=== PATIENT | female | born 1935 | race Caucasian/White ===

== ENCOUNTER 2020-02-06 12:33 | Outpatient (CLI) | payer MEDICARE, SELFPAY ==
--- NOTE | ~2020-02-06 | US_ITS ---
EXAMINATION:US venous doppler LE LT INDICATION:Left leg swelling TECHNIQUE: Multiple grayscale, color flow and Doppler images of the left lower extremity deep venous systems were obtained and reviewed. COMPARISON:No prior studies for comparison. FINDINGS: The common femoral, superficial femoral and popliteal veins demonstrate normal respiratory variation, augmentation and compressibility. Color flow is also seen within the posterior tibial, pe roneal, greater saphenous and profunda veins. IMPRESSION: 1: No lower extremity deep venous thrombosis. Reviewed, dictated and finalized at location A.
[2020-02-06 13:19] LABS: Basophils Absolute Auto 0.1 K/mm3 (0.0-0.1); Basophils Percent Auto 0.7 % (0.2-1.2); Eosinophils Absolute Auto 0.3 K/mm3 (0-0.3); Eosinophils Percent Auto 4.3 % (0-4.4); Hematocrit 35.3 % (37.0-47.0); Hemoglobin 11.5 g/dL (12.0-15.0); Immature Granulocyte Absolute 0.02 K/mm3 (0.00-0.031); Immature Granulocyte Percent A 0.3 % (0-0.5); Lymphocytes Percent Auto 19.2 % (18.3-44.2); Mean Corpuscular HGB Conc 32.6 g/dl (32-36); Mean Corpuscular Hemoglobin 31.5 pg (26-34); Mean Corpuscular Volume 96.7 fl (80-100); Mean Platelet Volume 10.7 fl (7.4-10.4); Monocytes Absolute Auto 0.8 K/mm3 (0.1-0.6); Monocytes Percent Auto 11.5 % (2.6-8.5); Neutrophils Absolute Auto 4.3 K/mm3 (1.3-6.7); Platelet Count Result 221 k/mm3 (150-375); Red Blood Count 3.65 M/mm3 (4.2-5.4); Red Cell Distribution Width 13.6 % (11.5-14.5); White Blood Count 6.8 K/mm3 (4.5-10.0)
== END 2020-02-06 12:34 | disposition home or self-care (01) ==
PROVIDERS: PCP Registered Nurse; Visit Provider Registered Nurse
DX: M79.89 Other specified soft tissue disorders (principal)
CPT/HCPCS: 36415; 85025; 93971

== ENCOUNTER 2020-02-22 13:59 | Emergency (ER) | payer MEDICARE, SELFPAY ==
--- NOTE | ~2020-02-22 | XR_ITS ---
XR hip LT 2V w AP pelvis DATE: 02/22/2020 14:48 INDICATION: Left hip pain following a fall 3 weeks ago. Left leg swelling down to the ankle. TECHNIQUE: AP pelvis. AP and lateral views of the left hip. COMPARISON: None FINDINGS: There is degenerative disease at L3-4 and particularly L4-5. The pubic symphysis and sacroiliac joints are normally aligned. No pelvic fracture or bone destructio n is evident. The hip joint spaces are symmetric and relatively well preserved; mild bilateral femora l head spurring consistent with mild bilateral hip osteoarthritis. No fracture, dislocation, avascula r necrosis or bone destruction of the left hip. IMPRESSION: Mild bilateral hip osteoarthritis No pelvic or left hip fracture Reviewed, dictated and finalized at location A.
--- NOTE | 2020-02-22 14:07 | ED.GENADULT ---
HPI - General Adult General Chief complaint: Extremity Injury, Lower Stated complaint: fall/leg pain Time Seen by Provider: 02/22/20 14:21 Source: patient Mode of arrival: ambulatory Limitations: no limitations History of Present Illness HPI narrative: 84-year-old female patient presents to the [facility] with complaints of left hip and left leg pain. Patient states that she tripped and fell and landed on some concrete at the end of January. Patient states that she went to see her primary doctor a couple of days later because she was having pain and swelling to the leg. Patient states that they did do a Doppler at that time and it was negative. Patient states that they did do x-rays but no x-rays are found in the chart today. Patient states the swelling and the pain to the leg continues and noticed that she is gotten big lump to the left hip. Patient states the swelling goes all the way down to her foot and ankle and that complains that her calf is very tender and very tight. Patient states that just not getting better. Denies being on any medications or blood thinners. Denies any chest pain or shortness of breath. Related Data Home Medications Medication Instructions Recorded Confirmed No Home Medications 02/22/20 02/22/20 Allergies Allergy/AdvReac Type Severity Reaction Status Date / Time No Known Allergies Allergy Unverified 01/29/20 12:10 Review of Systems Review of Systems: Narrative: CONSTITUTIONAL: Denies fever, chills, or sweats. EYES: Denies visual changes, redness, or discharge. ENT: Denies rhinorrhea, congestion, sore throat, or otalgia. CARDIOVASCULAR: Denies chest pain, palpitations, or edema. RESPIRATORY: Denies cough or dyspnea. GASTROINTESTINAL: Denies abdominal pain, nausea, vomiting, or diarrhea. GENITOURINARY: Denies dysuria or hematuria. SKIN: Denies rash or itching. Pap MUSCULOSKELETAL: Denies back pain, joint pain, or myalgia. Positive left hip and leg pain NEUROLOGIC: Denies headache, numbness, or weakness. PSYCHIATRIC: Denies anxiety or depression. [facility] Social History Social History Smoking status: Never smoker Alcohol intake: never Comments At the time of my signature I agree with nursing past medical history, surgical, social, and family history. There is no relevant family history pertinent to the presenting complaint. Exam Narrative: Exam Narrative: GENERAL: Well-appearing, well-nourished, and in no acute distress. HEAD: Normocephalic, atraumatic. EYES: PERRLA and EOMI. ENT: Nares clear, no rhinorrhea or epistaxis. Mucous membranes moist. NECK: Supple. No lymphadenopathy CHEST: Clear to auscultation. No respiratory distress. HEART: Regular rate and rhythm. No murmur heard. Normal peripheral pulses. ABDOMEN: Soft, nontender, nondistended, normal active bowel sounds. EXTREMITIES: Patient has large hematoma noted to the lateral side of the left hip. Patient does have good range of motion and able to walk with a steady gait on that leg. Patient does have significant swelling from the hip that goes all the way down to the ankle and foot and toes. Patient does have about 2-3+ pitting edema to the lower extremity and decreased pedal pulses on the left side. This could be due to the edema. There is some tightness noted to the skin on the left lower extremity and patient does have tenderness on palpation to the left calf. The left lower extremity is slightly warm to the touch as compared to the right extremity. SKIN: Warm, dry, no rash. NEURO: No focal deficits. Alert and oriented x3. Course Reevaluation(s) Reevaluation #1: Reevaluated patient after her hip x-ray has resulted. Discussed with her that the bones of the hip look fine and intact there is no evidence of any fractures. Discussed with her that I am still concerned the fact that she still has this very large hematoma to her left hip with extensive swelling to the left leg a
[2020-02-22 14:12] VITALS: BP 154/64; PULSE 51; RESP 16; TEMP 37.2; O2SAT 96
== END 2020-02-22 15:24 | disposition short-term general hospital (02) ==
PROVIDERS: Emergency Provider Nurse Practitioner Family; PCP Registered Nurse
DX: S70.02XA Contusion of left hip, initial encounter (principal); W19.XXXA Unspecified fall, initial encounter; I10 Essential (primary) hypertension
CPT/HCPCS: 73502; 99213; G0463

== ENCOUNTER 2020-02-22 15:51 | Emergency (ER) | payer MEDICARE, SELFPAY ==
--- NOTE | ~2020-02-22 | US_ITS ---
EXAMINATION: US venous doppler [facility] DATE: 02/22/2020 17:47 INDICATION: Left lower limb pain and swelling. TECHNIQUE: Grayscale ultrasound images without and with compression and Doppler ultrasound images of the left lower extremity veins were obtained. COMPARISON: Ultrasound 02/06/2020 FINDINGS: The visualized portions of left common femoral vein, profunda (deep) femoral vein, femoral vein, popl iteal vein, peroneal veins, posterior tibial veins, and greater saphenous vein outflow are patent. Th ere is a hematoma near the left hip measuring 9.2 x 6.2 x 6.1 cm. IMPRESSION: 1. No deep venous thrombosis. 2. Hematoma near the left hip. Reviewed, dictated and finalized at location A.
[2020-02-22 15:54] VITALS: BP 173/73; PULSE 60; RESP 20; TEMP 37.8; O2SAT 97
--- NOTE | 2020-02-22 17:40 | PC.NURSE ---
Pt states she fell 3 wks ago and still has L leg swelling and pain. Pt states she thinks the swelling should not be there and is concerned something is wrong. Pt to US
[2020-02-22 17:51] VITALS: O2SAT 99
[2020-02-22 17:52] VITALS: BP 177/85; O2SAT 98
[2020-02-22 17:53] LABS: Basophils Percent Auto 0.7 % (0.2-1.2); Eosinophils Absolute Auto 0.2 K/mm3 (0-0.3); Eosinophils Percent Auto 3.9 % (0-4.4); Hematocrit 37.7 % (37.0-47.0); Hemoglobin 12.3 g/dL (12.0-15.0); Immature Granulocyte Absolute 0.01 K/mm3 (0.00-0.031); Immature Granulocyte Percent A 0.2 % (0-0.5); Lymphocytes Absolute Auto 1.11 K/mm3 (0.9-3.2); Lymphocytes Percent Auto 19.6 % (18.3-44.2); Mean Corpuscular HGB Conc 32.6 g/dl (32-36); Mean Corpuscular Hemoglobin 32.3 pg (26-34); Mean Platelet Volume 11.6 fl (7.4-10.4); Monocytes Absolute Auto 0.7 K/mm3 (0.1-0.6); Monocytes Percent Auto 11.7 % (2.6-8.5); Neutrophils Absolute Auto 3.6 K/mm3 (1.3-6.7); Neutrophils Percent Auto 63.9 % (45.5-73.1); Platelet Count Result 148 k/mm3 (150-375); Red Blood Count 3.81 M/mm3 (4.2-5.4); Red Cell Distribution Width 14.6 % (11.5-14.5); White Blood Count 5.7 K/mm3 (4.5-10.0)
--- NOTE | 2020-02-22 18:05 | ED.LOWEXIN ---
HPI - Extremity Injury (Lower) General Chief Complaint: Extremity Injury, Lower Stated Complaint: fall, lt leg swelling & pain Time Seen by Provider: 02/22/20 17:26 Source: patient Mode of arrival: ambulatory Limitations: no limitations History of Present Illness HPI Narrative: This patient is a 84 year old female who presented for evaluation of left lower extremity swelling and redness. She states 3 weeks ago she fell onto her left hip. She developed left hip hematoma and leg swelling. She states this hematoma has decreased in size per patient. She reports swelling to entire leg but it has decreased. She came to get evaluated because her 's home health nurse told her she had cellulitis. She denies fever, chills, nausea, vomiting, weakness, chest pain or sob. Related Data Allergies Allergy/AdvReac Type Severity Reaction Status Date / Time No Known Allergies Allergy Unverified 01/29/20 12:10 Review of Systems Review of Systems: All systems reviewed & are unremarkable except as noted in HPI and below Constitutional: Constitutional: Denies chills, Denies fever(s) and Denies weakness Cardiovascular: Cardiovascular: Denies chest pain and Denies radiating jaw, neck or arm pain Respiratory: Respiratory: Denies cough, Denies dyspnea and Denies wheezing Gastrointestinal: Gastrointestinal: Denies nausea and Denies vomiting Musculoskeletal: Musculoskeletal: Denies back pain and Denies arthralgias Integumentary/Breasts: Skin/Breast: Denies skin ulcer Neurologic: Denies dizziness and Denies weakness PMFSH Past Medical History Medical History (Updated 02/22/20 @ 20:53 by Carmen Jacobs MD) Patient denies medical problems Social History Social History Smoking status: Never smoker Alcohol intake: never Exam Narrative: Exam Narrative: GENERAL: Well-appearing, well-nourished, and in no acute distress. HEAD: Normocephalic, atraumatic EYES: PERRLA and EOMI, conjunctiva clear without discharge Maria Teresa THROAT:Mucous membranes moist, Oropharynx normal without erythema, exudate, peritonsillar swelling or fluctuance NECK: Supple, without lymphadenopathy or mass RESPIRATORY: No respiratory distress, Airway patent, Respirations non-labored, Clear to auscultation without rales, rhonchi or wheeze HEART: Regular rate and rhythm. No murmur heard. Normal peripheral pulses. ABDOMEN: Soft, nontender, nondistended, normal active bowel sounds. No masses. No rebound or guarding, No organomegaly. EXTREMITIES: normal strength with full range of motion. left lower extremity with edema from foot to thigh, mild erythema clear cavitylower leg and tenderness. There is left hip area of swelling with no erythema, no tenderness, no ecchymosis. SKIN: Warm, dry, NEURO: Alert and oriented x3. CN 2-12 grossly intact. No focal deficits. PSYCH: Normal mood and affect. Charted negative RN RN RN Course Reevaluation(s) Reevaluation #1: Patient's labs are unremarkable . Her left lower leg is slightly red but this redness does not involve the hematoma. She only has mild tenderness to left lower leg. I discussed she will be prescribed antibiotics. Her redness may just be due to edema. Patient was also found to be bradycardic. 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 She states she has been told in the past she needs pacemaker but she states she is 84 year old and she is not getting a pacemaker. She states most people don't live that long. She does not want to be admitted or having anything done. Date: 02/22/20 Time: 19:17 Vital Signs Vital signs: Vital Signs Temperature 100.1 F H 02/22/20 15:54 Pulse Rate 60 02/22/20 15:54 Respiratory Rate 20 02/22/20 15:54 Blood Pressure 173/73 H 02/22/20 15:54 Pulse Oximetry 97 02/22/20 15:54 Temperature 100.1 F H 02/22/20 15:54 Pulse Rate 58 L 02/22/20 19:29 Respiratory Rate 20
[2020-02-22 18:06] LABS: INR 1.3; Prothrombin Time 15.4 Seconds (11.1-14.7)
[2020-02-22 18:07] LABS: Partial Thromboplastin Time 33.3 SECONDS (22.3-36.8)
[2020-02-22 18:10] LABS: Blood Urea Nitrogen 19 mg/dL (7-17); CRP 0.7 mg/dL (<1.0); Calcium 8.9 mg/dL (8.4-10.2); Carbon Dioxide 27 mmol/L (22-30); Chloride 103 mmol/L (98-107); Estimated CRCL calculation 35 ml/min; Estimated Glomerular Filt Rate 60; Glucose 110 mg/dL (65-105); Sodium 137 mmol/L (137-145)
[2020-02-22 19:12] LABS: Erythrocyte Sedimentation Rate 15 mm/hr (0-20)
[2020-02-22 19:29] VITALS: BP 190/90; PULSE 58; RESP 20; O2SAT 98
== END 2020-02-22 19:31 | disposition home or self-care (01) ==
PROVIDERS: Physician Assistant; Emergency Provider General Practice; PCP Registered Nurse
DX: L03.116 Cellulitis of left lower limb (principal); S70.02XA Contusion of left hip, initial encounter; R00.1 Bradycardia, unspecified; W19.XXXA Unspecified fall, initial encounter
CPT/HCPCS: 36415; 73502; 80048; 85025; 85610; 85652; 85730; 86140; 93971; 99284

== ENCOUNTER 2021-03-11 08:37 | Observation (INO) | payer MEDICARE, SELFPAY ==
[2021-03-11] VITALS (15 sets, daily range): BP systolic 133–182; BP diastolic 68–97; PULSE 46–76; RESP 14–23; TEMP 36.3–36.5; O2SAT 95–100
--- NOTE | ~2021-03-11 | XR_ITS ---
EXAMINATION: XR chest 2V DATE: 03/11/2021 09:04 INDICATION: Shortness of breath TECHNIQUE: PA and lateral views of the chest were obtained. COMPARISON: None FINDINGS: Cardiomegaly. Mild increased interstitial pattern in the lower lung zones with a few peripheral Kerle y B-lines consistent with mild pulmonary edema. Streaky opacities in the bilateral lower lung zones w hich could represent atelectasis or less likely pneumonia. No pleural effusion or pneumothorax. Tortu ous and atherosclerotic thoracic aorta. Moderate degenerative skeletal changes in the thoracic spine and bilateral shoulders. IMPRESSION: 1. Likely congestive heart failure with cardiomegaly and mild pulmonary edema in the lower lung zones . 2. Streaky bibasilar opacities and favor atelectasis over pneumonia. Reviewed, dictated and finalized at location A. IMPRESSION: 1. Likely congestive heart failure with cardiomegaly and mild pulmonary edema i n the lower lung zones. 2. Streaky bibasilar opacities and favor atelectasis over pneumonia.
--- NOTE | ~2021-03-11 | US_ITS ---
EXAMINATION: US venous doppler [facility] DATE: 03/12/2021 13:31 INDICATION: Lower limb swelling. TECHNIQUE: Grayscale ultrasound images without and with compression and Doppler ultrasound images of the bilateral lower extremity veins were obtained. COMPARISON: Ultrasound 02/22/2020 FINDINGS: The visualized portions of right common femoral vein, profunda (deep) femoral vein, femoral vein, pop liteal vein, peroneal veins, posterior tibial veins, and greater saphenous vein outflow are patent. T here is a large Richey's cyst. The visualized portions of left common femoral vein, profunda femoral vein, femoral vein, popliteal v ein, peroneal veins, posterior tibial veins, and greater saphenous vein outflow are patent. There is a moderate-sized Richey's cyst. IMPRESSION: 1. No deep venous thrombosis. 2. Bilateral Richey's cysts. Reviewed, dictated and finalized at location A.
--- NOTE | 2021-03-11 08:41 | PC.NURSE ---
Brionna Diaz ([id number]) [phone]
--- NOTE | 2021-03-11 08:48 | ECG_ITS ---
Measurements Intervals [place] Rate: 55 P: IA: 0 QRS: 8 QRSD: 110 T: 152 QT: 437 QTc: 420 Interpretive Statements ATRIAL FIBRILLATION WITH SLOW VENTRICULAR RESPONSE LEFT BUNDLE BRANCH BLOCK INFERIOR INFARCT, AGE INDETERMINATE ANTEROSEPTAL INFARCT OR DUE TO LBBB ABNORMAL ECG Electronically Signed On 03-11-2021 9:05:25 CDT by Marshall Felton D.O.
[2021-03-11 08:59] LABS: Basophils Percent Auto 0.7 % (0.2-1.2); Eosinophils Absolute Auto 0.2 K/mm3 (0-0.3); Eosinophils Percent Auto 4.3 % (0-4.4); Hematocrit 41.9 % (37.0-47.0); Hemoglobin 13.3 g/dL (12.0-15.0); Immature Granulocyte Absolute 0.01 K/mm3 (0.00-0.031); Immature Granulocyte Percent A 0.2 % (0-0.5); Immature Platelet Fraction Pct 9.1 % (0.9-11.2); Lymphocytes Absolute Auto 1.21 K/mm3 (0.9-3.2); Lymphocytes Percent Auto 22.4 % (18.3-44.2); Mean Corpuscular HGB Conc 31.7 g/dl (32-36); Mean Corpuscular Hemoglobin 30.3 pg (26-34); Mean Corpuscular Volume 95.4 fl (80-100); Mean Platelet Volume 11.9 fl (7.4-10.4); Monocytes Absolute Auto 0.7 K/mm3 (0.1-0.6); Monocytes Percent Auto 13.4 % (2.6-8.5); Neutrophils Absolute Auto 3.2 K/mm3 (1.3-6.7); Platelet Count Result 128 k/mm3 (150-375); Red Blood Count 4.39 M/mm3 (4.2-5.4); Red Cell Distribution Width 14.4 % (11.5-14.5); White Blood Count 5.4 K/mm3 (4.5-10.0)
[2021-03-11 09:11] LABS: Anion Gap 8 mmol/L (8-16); Blood Urea Nitrogen 20 mg/dL (7-17); Calcium 8.9 mg/dL (8.4-10.2); Carbon Dioxide 26 mmol/L (22-30); Chloride 105 mmol/L (98-107); Estimated CRCL calculation 38 ml/min; Estimated Glomerular Filt Rate > 60; Glucose 138 mg/dL (65-105); Potassium 3.9 mmol/L (3.4-5.0); Sodium 139 mmol/L (137-145)
--- NOTE | 2021-03-11 09:42 | ED.SOB ---
HPI - SOB/Dyspnea General Chief Complaint: Shortness of Breath/Dyspnea Stated Complaint: SOB Time Seen by Provider: 03/11/21 09:33 Source: patient Mode of arrival: wheelchair Limitations: no limitations History of Present Illness HPI Narrative: Patient is an 85-year-old female who presents from home with complaints of shortness of breath. Patient reports shortness of breath x1 month and increasing swelling to bilateral lower extremities. Patient reports that her PCP is a clinic . She denies taking daily meds. Patient reports she is scheduled for a pacemaker on 03/18. She denies chest pain or other complaints. She reports exertional dyspnea increasing over the past 2 weeks. Patient denies exposure to Covid and reports vaccination x2. Patient is unable to provide name of domestic helper at this time. Patient denies significant medical history except for the scheduled pacemaker placement. MD elicited complaint: shortness of breath Related Data Home Medications Medication Instructions Recorded Confirmed No Home Medications 03/11/21 03/11/21 Allergies Allergy/AdvReac Type Severity Reaction Status Date / Time No Known Allergies Allergy Unverified 01/29/20 12:10 Review of Systems Review of Systems: Narrative: CONSTITUTIONAL: Denies fever, chills, or sweats. EYES: Denies visual changes, redness, or discharge. ENT: Denies rhinorrhea, congestion, sore throat, or otalgia. CARDIOVASCULAR: Denies chest pain, palpitations, or edema. RESPIRATORY: Reports shortness of breath, denies cough GASTROINTESTINAL: Denies abdominal pain, nausea, vomiting, or diarrhea. GENITOURINARY: Denies dysuria or hematuria. SKIN: Denies rash or itching. MUSCULOSKELETAL: Denies back pain, joint pain, or myalgia. NEUROLOGIC: Denies headache, numbness, dizziness, or weakness. PSYCHIATRIC: Denies anxiety or depression. [facility] Past Medical History Medical History (Updated 02/23/20 @ 00:00 by Frank Reagan) Patient denies medical problems Social History Social History Smoking status: Never smoker Alcohol intake: never Course MEDICAL RECRUITER/PA Physician Supervision Dr. Chavez Vital Signs Vital signs: Vital Signs Pulse Rate 59 L 03/11/21 08:48 Respiratory Rate 14 03/11/21 08:48 Blood Pressure 174/80 H 03/11/21 08:48 Pulse Oximetry 96 03/11/21 08:48 Temperature 36.3 C L 03/11/21 08:53 Pulse Rate 55 L 03/11/21 13:03 Respiratory Rate 23 H 03/11/21 13:03 Blood Pressure 157/85 H 03/11/21 13:03 Pulse Oximetry 97 03/11/21 11:44 Reviewed-patient is informed that they may have pre-hypertension or hypertension based on a blood pressure reading. I recommend the patient call the primary care provider listed on their discharge instructions or a physician of their choice this week to arrange follow-up for further evaluation of possible pre-hypertension or hypertension. MDM - SOB/Dyspnea Lab Data Result diagrams: 03/11/21 08:52 03/11/21 08:52 Labs: Lab Results 03/11/21 03/11/21 03/11/21 Range/Units 08:52 08:52 08:52 WBC 5.4 (4.5-10.0) K/mm3 RBC 4.39 (4.2-5.4) M/mm3 Hgb 13.3 (12.0-15.0) g/dL Hct 41.9 (37.0-47.0) % MCV 95.4 (80-100) fl MCH 30.3 (26-34) pg MCHC 31.7 L (32-36) g/dl RDW 14.4 (11.5-14.5) % Plt Count 128 L (150-375) k/mm3 MPV 11.9 H (7.4-10.4) fl Immature Gran % (Auto) 0.2 (0-0.5) % Neut % (Auto) 59.0 (45.5-73.1) % Lymph % (Auto) 22.4 (18.3-44.2) % [place] % (Auto) 13.4 H (2.6-8.5) % Eos % (Auto) 4.3 (0-4.4) % Baso % (Auto) 0.7 (0.2-1.2) % Lymph # (Auto) 1.21 (0.9-3.2) K/mm3 [place] # (Auto) 0.7 H (0.1-0.6) K/mm3 Eos # (Auto) 0.2 (0-0.3) K/mm3 Baso # (Auto) 0.0 (0.0-0.1) K/mm3 Abs Immat Gran (auto) 0.01 (0.00-0.031) K/mm3 Absolute Neuts (auto) 3.2 (1.3-6.7) K/mm3 Absolute Nucleated RBC 0.0 (0.0-0.012) K/mm3 Nucleated RBC %
[2021-03-11 09:55] LABS: NT Pro B Type Natriuretic Pept 3330 pg/mL (5-100)
[2021-03-11] MEDS: FUROSEMIDE INJ 40 MG/4 ML VIAL IV PUSH ×2 (11:11→20:45)
--- NOTE | 2021-03-11 13:30 | ADMGEN ---
This patient, Becky Diaz, was admitted to [address] [place] [address] Room 330-01. Patient/family oriented to hospital policies and general routines including ID bracelet, bed and alarms, visiting hours, pain management, procedures, bathroom and other care routines, personal items, smoking policy, room service/diet, and visiting hours. Information on how to activate the Rapid Response Team has been discussed. Patient/Family are encouraged to report perceived risks to care and to ask questions if they do not understand what they are told or what they should do.
--- NOTE | 2021-03-11 14:25 | PM.IMHP ---
H&P: HPI History of Present Illness Date/Time: 03/11/21 14:25 Chief Complaint: Shortness of breath. Narrative: This is an 85-year-old female with paroxysmal atrial fibrillation and hypertension who presented to the emergency department earlier today via private vehicle from home for evaluation of shortness of breath. Over the past 1 month or so she has had progressive dyspnea as well as lower extremity edema. She was seen by her primary care provider, Kavya De La Paz NP and she was referred to a car rental sales assistant at [facility] where they discussed pacemaker insertion due to bradycardia. It sounds like she has an appointment for that on March 18. In any regard she has had increasing shortness of breath and orthopnea to the point where she is just not sleeping well thus she came in for evaluation today. She was indeed found to have evidence of congestive heart failure and slow AFib and she is being admitted in this setting. She was previously on medication for her atrial fibrillation and hypertension however stop taking them because they made her feel unwell. She has no complaints at the time my evaluation and specifically denies syncope, near syncope, chest pain, pleuritic pain, resting shortness of breath, nausea, vomiting, and sweats. Review of Systems Review of Systems: Narrative: 12 systems were reviewed with pertinent positives and negatives as per HPI. No recent cold or flu symptoms. She denies exposure to those positive for COVID-19. She has occasional palpitations and racing heart but not very often. No history of stroke or stroke symptoms. No history of venous thromboembolism. She has chronic knee pain, more so on the right knee, due to arthritis. Except as documented, all other systems were reviewed and are negative. [facility] Past Medical History Medical History (Updated 03/11/21 @ 22:01 by Olga Kaplan PA-C) Hypertension Paroxysmal atrial fibrillation (~07/2014) Surgical History Surgical History (Updated 03/11/21 @ 22:01 by Olga Kaplan PA-C) No history of previous surgery Family History Family History Mother Heart disease Father Prostate carcinoma Sibling Diabetes mellitus Sibling Cancer Social History Social History (Updated 03/11/21 @ 22:03 by Olga Kaplan PA-C) Social History: The patient grew up in [place] [facility] but has been in the [facility] for many years. She is and had 4 children, 1 son who is . Lifelong nonsmoker. She drinks perhaps 1 alcoholic beverage in evening if that. No illicit substance use. She designates her son Lionel as her surrogate decision maker. Code status: Full code. Meds Home Medications and Allergies Home Medications Medication Instructions Recorded Confirmed Type No Home Medications 03/11/21 03/11/21 History Allergies Allergy/AdvReac Type Severity Reaction Status Date / Time No Known Allergies Allergy Unverified 01/29/20 12:10 Vital Signs Vital Signs - 24 hr 03/11/21 08:48 03/11/21 08:53 03/11/21 08:57 Temperature 97.3 F L Pulse Rate 59 L 53 L 52 L Respiratory Rate 14 14 Blood Pressure 174/80 H 174/80 H Pulse Oximetry 96 98 03/11/21 09:22 03/11/21 09:23 03/11/21 09:25 Temperature Pulse Rate 50 L 51 L 46 L Respiratory Rate 18 19 17 Blood Pressure 138/88 146/74 H 135/85 Pulse Oximetry 96 95 95 03/11/21 09:26 03/11/21 11:44 03/11/21 13:03 Temperature Pulse Rate 54 L 51 L 55 L Respiratory Rate 20 19 23 H Blood Pressure 133/81 168/75 H 157/85 H Pulse Oximetry 96 97 03/11/21 13:05 Temperature Pulse Rate 55 L Respiratory Rate 18 Blood Pressure 150/97 H Pulse Oximetry 97 Exam Narrative: Exam Narrative: General: Well-developed elderly female sitting up in bed in no distress. Weight: 68.18 kg. BMI: 25.8. HEENT: Wearing glasses. PERRL, EOMI. Sclerae anicteric. Oral mucosa moist. Oropharynx clear. Neck: Supple. Respirato
[2021-03-11 15:30] LABS: Alanine Aminotransferase 17 U/L (4-35); Albumin Level 4.2 g/dL (3.5-5.1); Alkaline Phosphatase 138 U/L (38-126); Aspartate Amino Transferase 34 U/L (14-36); Bilirubin,Total 1.5 mg/dL (0.2-1.3); Magnesium 1.6 mg/dL (1.6-2.3)
[2021-03-11 15:34] LABS: Hemoglobin A1C 6.9 % (<5.7)
[2021-03-11 16:50] LABS: Free T4 Free Thyroxine Reflex 1.38 ng/dL (0.78-2.19)
[2021-03-11 17:25] LABS: Glucose Point of Care 154 mg/dl (65-105)
[2021-03-11 17:44] LABS: Total Triiodothyronine (T3) 1.17 NG/ML (0.97-1.69)
[2021-03-12] VITALS (9 sets, daily range): BP systolic 123–150; BP diastolic 57–65; PULSE 47–57; RESP 14–20; TEMP 36.1–36.4; O2SAT 93–100
--- NOTE | 2021-03-12 | ECHO_ITS ---
Patient Info Name: Becky Diaz Age: 85 years : 1935 Gender: Female Ht: 64 in Wt: 151 lbs BSA: 1.77 m2 HR: 51 bpm BP: 147 / 65 mmHg Heart Rhythm: Atrial Fibrillation Technical Quality: Good Exam Date: 03/12/2021 1:40 PM Exam Location: [facility] Pulmonary Patient Status: Outpatient Admit Date: 03/11/2021 Staff Ordering Physician: Mona Hendricks Orthopedic Assistant: Edgar Dorantes RDCS, RT Attending Provider: Nyla Hernandez PA-C Referring Physician: Ruthie SIBLEY; Exam Type: CA echo doppler color flow Study Info Indications I50.9 - Heart failure, unspecified Complete two-dimensional, color flow and Doppler transthoracic echocardiogram is performed. Strain analysis performed. Summary 1. Complete two-dimensional, color flow and Doppler transthoracic echocardiogram is performed. 2. Left ventricular chamber dimension is mildly enlarged. 3. Left ventricular systolic function is moderately reduced, estimated at 35-40%. 4. Right ventricular chamber dimension is mildly enlarged. 5. Severe biatrial dilation. 6. Mild aortic and mitral regurgitation. 7. Moderate tricuspid regurgitation. 8. Atrial Fib. Left Ventricle Left ventricular chamber dimension is mildly enlarged. Left ventricular systolic function is moderately reduced, estimated at 35-40%. The left ventricular diastolic function is indeterminate. Right Ventricle Right ventricular chamber dimension is mildly enlarged. Left Atria Left atrial chamber dimension is severely enlarged. Right Atria Right atrial chamber dimension is severely enlarged. Aortic Valve The aortic valve is normal. There is mild aortic valve regurgitation. Pulmonic Valve The pulmonic valve is normal. Mitral Valve The mitral valve has normal leaflets. There is mild mitral valve regurgitation. Tricuspid Valve The tricuspid valve leaflets are normal. There is moderate tricuspid valve regurgitation. Pericardium/Pleural The pericardium appears normal. Aorta The aortic root size at the sinus of Valsalva is normal. Left Ventricular Outflow Tract Name Value Normal LVOT 2D LVOT Diameter 2.0 cm LVOT Doppler LVOT Peak Gradient 5 mmHg LVOT Mean Gradient 2 mmHg LVOT VTI 21 cm LVOT VTI/AV VTI Ratio 0.6 LVOT Stroke Volume 67 ml LVOT CO 3.9 l/min LVOT CI 2.2 l/min/m2 Mitral Valve Name Value Normal MV Doppler MV Decel Giles 363 cm/s2 MV PHT 78 ms MV Area (PHT) 2.8 cm2 4.0-5.0 MV Diastolic Function MV E Peak Veloc
[2021-03-12 06:18] LABS: Potassium 3.3 mmol/L (3.4-5.0)
[2021-03-12 06:28] LABS: Anion Gap 6 mmol/L (8-16); Blood Urea Nitrogen 21 mg/dL (7-17); Calcium 8.4 mg/dL (8.4-10.2); Carbon Dioxide 30 mmol/L (22-30); Chloride 102 mmol/L (98-107); Estimated CRCL calculation 43 ml/min; Estimated Glomerular Filt Rate > 60; Glucose 109 mg/dL (65-105); Magnesium 1.5 mg/dL (1.6-2.3); Sodium 138 mmol/L (137-145)
[2021-03-12 08:10] LABS: Glucose Point of Care 124 mg/dl (65-105)
[2021-03-12] MEDS: FUROSEMIDE INJ 40 MG/4 ML VIAL 20 MG IV PUSH ×2 (08:29→20:20)
[2021-03-12] MEDS: ENOXAPARIN 40 MG/0.4 ML SYRINGE SUB-Q (08:29)
[2021-03-12] MEDS: MAGNESIUM SULF 2 GM/WATER 50ML 2 GM/50 ML BAG IVPB (08:40)
[2021-03-12] MEDS: POTASSIUM CHLORIDE 20 MEQ TABLET 40 MEQ PO (08:40)
--- NOTE | 2021-03-12 09:35 | PM.CNCAR ---
Assessment and Plan Assessment and plan (1) Atrial fibrillation with slow ventricular response: Code(s): I48.91 - Unspecified atrial fibrillation Status: Acute Assessment and Plan: History of atrial fibrillation by report diagnosed in 2013. She is in atrial fibrillation but rate controlled on no AV ashley blocking agents suggesting some degree of AV node dysfunction. She is also not systemically anticoagulated and says that she has never taken any blood thinners for her atrial fibrillation. However, records from our office indicate that she was seen by Dr. Blaze javier initially after being diagnosed with atrial fibrillation is placed on Xarelto at that time. At that time she admitted to only taking her Xarelto once every 3 days. The risk of stroke was discussed with her at that time. She has a CHADS Vasc score of 5 (CHF, hypertension, age, female gender) - anticoagulation is indicated. Will restart Xarelto. (2) Hypertension: Code(s): I10 - Essential (primary) hypertension Status: Acute Assessment and Plan: Above goal. will add an antihypertensive agent to her regimen with initiation of medical therapy for her heart failure. (3) Congestive heart failure: Qualifiers: Heart failure chronicity: acute Heart failure type: unspecified Qualified Code(s): I50.9 - Heart failure, unspecified Code(s): I50.9 - Heart failure, unspecified Status: Acute Assessment and Plan: Per the patient she has no knowledge of a prior diagnosis of congestive heart failure. However, echocardiogram from 2017 shows that she has grade 3-4 diastolic dysfunction with an ejection fraction of 45-50%. Severe biatrial enlargement. mild mitral valve regurgitation, mild aortic regurgitation, trivial pulmonic regurgitation. Will repeat an echo. I would like to start her on medical management for her heart failure however, patient states that she does not want to take any medicines. Will wait until repeat echo results are available and discuss strategy for medical management of her systolic and diastolic heart failure. Further recommendations to follow. (4) Left bundle branch block: Code(s): I44.7 - Left bundle-branch block, unspecified Status: Acute Assessment and Plan: Left bundle-branch block seen on EKG. No prior EKG to compare this to. She does tell me that her clerk specialist mentioned some type of procedure to look at her heart which I imagine was probably a left heart catheterization. However, this was not performed. Will obtain an echocardiogram to assess for reduced systolic function - if reduced will discuss with patient possible ischemic evaluation (5) Heart murmur on physical examination: Code(s): R01.1 - Cardiac murmur, unspecified Status: Acute Assessment and Plan: She has a soft ejection murmur heard at the right and left upper sternal borders. She states she has never been told that she has a heart murmur in the past. Will obtain an echocardiogram to assess for any valve pathology. History of Present Illness History of Present Illness Consult date/time: 03/12/21 09:35 Requesting physician: Sandra Patino FNP Consult reason: congestive heart failure Reason For Visit: new onset chf Narrative: Date of service 03/12/2021: Cardiology consultation for congestive heart failure This is an 85-year-old female who I am seeing at the request of Radha Patino NP for our opinion regarding her heart failure. This is a patient with a past medical history of hypertension and atrial fibrillation who presented to the emergency department yesterday with complaint of shortness of breath. She says that gradually over several months she has noticed that she is unable to carry out her usual activities without becoming short of breath. She does say that she is still able to do everything that she is to however she does notice that after she walks a long distance es
--- NOTE | 2021-03-12 12:26 | PM.IMPN ---
Progress Note: A&P Assessment and Plan (1) Congestive heart failure: Qualifiers: Heart failure chronicity: acute on chronic Heart failure type: combined systolic and diastolic Qualified Code(s): I50.43 - Acute on chronic combined systolic (congestive) and diastolic (congestive) heart failure Code(s): I50.9 - Heart failure, unspecified Status: Acute Assessment and Plan: Patient with known systolic and diastolic heart failure presents with worsening shortness of breath and CAYLA lower extremity swelling over the last 1 month. She stopped taking her medications at some point. She reiterates her hesitancy to take any medications since she says her last year due to side effects from too many medications , per patient. Continue diuresis with IV lasix and monitor I&Os, daily weights. Low sodium diet. Leg swelling is likely due to decompensated heart failure however given her risk for VTE, will order venous doppler of the legs. Appreciate cardiology input. Echocardiogram pending. (2) Atrial fibrillation with slow ventricular response: Code(s): I48.91 - Unspecified atrial fibrillation Status: Chronic Assessment and Plan: History of A fib dating back to 2013. HRs mostly in 40s and 50s today but as low as 37bpm with which she is asymptomatic. Patient reports an upcoming appointment for pacemaker insertion 03/18/21 at [facility] I believe with Dr White. LISSETTE Dunn and I have both educated the patient on her increased risk for VTE and stroke and the recommendation for Xarelto. Xarelto added. (3) Left bundle branch block: Code(s): I44.7 - Left bundle-branch block, unspecified Status: Acute Assessment and Plan: Awaiting echocardiogram. (4) Hypertension: Qualifiers: Hypertension type: unspecified Qualified Code(s): I10 - Essential (primary) hypertension Code(s): I10 - Essential (primary) hypertension Status: Chronic Assessment and Plan: BPs elevated yesterday and have improved a little with lasix. She was previously on losartan which she says she stopped taking since it made her feel unwell. Further cardiac recommendations to follow after echocardiogram. Monitor BP and adjust treatment as needed. Subjective Date/time seen: 03/12/21 1210 Interval history: Ms. Diaz is a 85yo F admitted for acute on chronic CHF. She reports she is feeling a bit better and her shortness of breath is improved today. She denies chest pain. Tolerating oral intake without abdominal pain, nausea or vomiting. Review of Systems Review of Systems: All systems reviewed & are unremarkable except as noted in HPI and below Exam Narrative: Exam Narrative: General: Well-developed, spry elderly female resting comfortably sitting up in bedside chair in no acute distress. HEENT: Wearing glasses. EOMI. Sclerae anicteric. Oral mucosa moist. Neck: Supple. Respiratory: Lungs are clear to auscultation bilaterally. Respirations even and nonlabored. Tolerating room air. Cardiovascular: Rate is bradycardic, rhythm is irregular. Systolic murmur heard over left sternal border. Telemetry review shows atrial fibrillation with bradycardia. Gastrointestinal: Abdomen is soft, nontender, and nondistended with positive bowel sounds. Extremities: No cyanosis or clubbing. Trace pretibial and pedal edema bilaterally, right greater than left. Negative Javier sign. Neurological: Awake and alert; answering questions appropriately. No focal neurologic deficits noted. Speech is clear. Psychiatric: Pleasant and cooperative with normal mood and affect. Objective Data Vital Signs Vital Signs: Last Vital Signs Temp 97.6 F 03/12/21 06:00 Pulse 54 L 03/12/21 12:00 Resp 14 03/12/21 06:00
[2021-03-12 13:07] LABS: Magnesium 2.1 mg/dL (1.6-2.3); Potassium 3.9 mmol/L (3.4-5.0)
[2021-03-12] MEDS: RIVAROXABAN 20 MG TABLET PO (17:16)
[2021-03-13] VITALS: PULSE 44
[2021-03-13 04:00] VITALS: PULSE 54
[2021-03-13 06:00] VITALS: BP 147/79; PULSE 57; RESP 16; TEMP 36.2; O2SAT 94
[2021-03-13 06:31] LABS: Anion Gap 6 mmol/L (8-16); Blood Urea Nitrogen 20 mg/dL (7-17); Calcium 8.5 mg/dL (8.4-10.2); Carbon Dioxide 30 mmol/L (22-30); Chloride 102 mmol/L (98-107); Estimated CRCL calculation 38 ml/min; Estimated Glomerular Filt Rate > 60; Glucose 100 mg/dL (65-105); Magnesium 1.9 mg/dL (1.6-2.3); Potassium 3.6 mmol/L (3.4-5.0); Sodium 138 mmol/L (137-145)
[2021-03-13 08:00] VITALS: PULSE 57
[2021-03-13] MEDS: FUROSEMIDE INJ 40 MG/4 ML VIAL 20 MG IV PUSH (08:27)
[2021-03-13] MEDS: SACUBITRIL/VALSARTAN 24-26 MG TABLET 1 TAB PO (08:32)
--- NOTE | 2021-03-13 09:31 | PM.PNCARD ---
Progress Note: A&P Assessment and Plan (1) Atrial fibrillation with slow ventricular response: Code(s): I48.91 - Unspecified atrial fibrillation Status: Chronic Assessment and Plan: History of atrial fibrillation by report diagnosed in 2013. She is in atrial fibrillation but rate controlled on no AV ashley blocking agents suggesting some degree of AV node dysfunction. She is also not systemically anticoagulated and says that she has never taken any blood thinners for her atrial fibrillation. However, records from our office indicate that she was seen by Dr. Caruso initially after being diagnosed with atrial fibrillation is placed on Xarelto at that time. At that time she admitted to only taking her Xarelto once every 3 days. The risk of stroke was discussed with her at that time. She has a CHADS Vasc score of 5 (CHF, hypertension, age, female gender) - anticoagulation is indicated and Xarelto has been restarted. Apparently, she has seen a assistant printer floor covering with a [facility] who recommended and scheduled a pacemaker implantation for her on March 18. She tells me that she is not sure she wants to go through with this procedure. According to the patient she has never experienced any syncope, presyncope. During this hospitalization her heart rate has been in the 40s and 60's during the day and in the 30s during hours of sleep. She has not had any significant pauses noted on telemetry. (2) Hypertension: Qualifiers: Hypertension type: unspecified Qualified Code(s): I10 - Essential (primary) hypertension Code(s): I10 - Essential (primary) hypertension Status: Chronic Assessment and Plan: Above goal. She has been placed on Entresto which should lower her blood pressure some. She does not want to take any other medications for her hypertension. I instructed her to monitor her blood pressure at home and to bring a log of her blood pressure measurements to her follow-up appointment. (3) Congestive heart failure: Qualifiers: Heart failure chronicity: acute on chronic Heart failure type: combined systolic and diastolic Qualified Code(s): I50.43 - Acute on chronic combined systolic (congestive) and diastolic (congestive) heart failure Code(s): I50.9 - Heart failure, unspecified Status: Acute Assessment and Plan: Echocardiogram from 03/12/2021 showed: 1. Complete two-dimensional, color flow and Doppler transthoracic echocardiogram is performed. 2. Left ventricular chamber dimension is mildly enlarged. 3. Left ventricular systolic function is moderately reduced, estimated at 35-40%. 4. Right ventricular chamber dimension is mildly enlarged. 5. Severe biatrial dilation. 6. Mild aortic and mitral regurgitation. 7. Moderate tricuspid regurgitation. 8. Atrial Fib. I discussed these results with her. In particular, I discussed her moderate systolic dysfunction and my plan to initiate Entresto. She is agreeable to taking Entresto. She should have a B BMP drawn in 1 week. (4) Left bundle branch block: Code(s): I44.7 - Left bundle-branch block, unspecified Status: Acute Assessment and Plan: She is not interested in pursuing an ischemic evaluation at this time. I will follow up with her as an outpatient and will discuss ischemic evaluation for some point in the future. (5) Heart murmur on physical examination: Code(s): R01.1 - Cardiac murmur, unspecified Status: Acute Assessment and Plan: Per echocardiogram from 03/12/2021 she does have mild aortic valve regurgitation as well as mild mitral valve regurgitation. Additional Plan I talked to the patient extensively about her diagnoses of atrial fibrillation as well as heart failure. I discussed the results of her echocardiogram with her and the need for her to be initiated on some medications. She told me yesterday as well as today that she does not
[2021-03-13] MEDS: MAGNESIUM OXIDE 400 MG TABLET PO (10:38)
[2021-03-13] MEDS: POTASSIUM CHLORIDE 20 MEQ TABLET.ER PO (10:38)
--- NOTE | 2021-03-13 11:45 | PM.DS ---
DS: Admitting Diagnosis Admitting Diagnosis Admitting Diagnosis: CHF exacerbation DS: Discharge Diagnosis Discharge Diagnosis (1) Congestive heart failure: Qualifiers: Heart failure chronicity: acute on chronic Heart failure type: combined systolic and diastolic Qualified Code(s): I50.43 - Acute on chronic combined systolic (congestive) and diastolic (congestive) heart failure Code(s): I50.9 - Heart failure, unspecified Status: Acute Assessment and Plan: Date of Admission 03/11/21 Date of Discharge 03/13/21 Ms. Diaz is an 85yo F with known systolic and diastolic heart failure, atrial fibrillation who presented to the ED for evaluation of shortness of breath x1 month and increased bilateral lower extremity swelling. She stopped taking all of her medications at some point. She was recently evaluated by her primary SOD CUTTER and Cardiology ([facility]) and describes that she has this appointment scheduled on 03/18/2021 to have pacemaker placed. On arrival, she is noted to be in atrial fibrillation with bradycardia. Chest x-ray shows findings consistent with mild pulmonary edema. She was diuresed with IV Lasix and evaluated by Cardiology. Echocardiogram results detailed below. Doppler lower extremities shows no evidence of DVT. Patient reiterates her hesitancy to take any medications since she says her last year due to side effects from too many medications , per patient. She was started on Entresto, Xarelto per Cardiology. She was educated thoroughly on her cardiovascular/VTE/stroke risk given her comorbidities and reassured on the importance of taking her medications as prescribed. Will trial a short course of 20 mg oral Lasix daily with potassium supplementation prior to her follow-up with Cardiology in 2-3 weeks. Her shortness of breath and swelling improved and she was hemodynamically stable for discharge on 03/13/2021 with instructions to follow-up with cardiology and her PCP. (2) Atrial fibrillation with slow ventricular response: Code(s): I48.91 - Unspecified atrial fibrillation Status: Chronic Assessment and Plan: History of A fib dating back to 2013. HRs mostly in 40s and 50s today but as low as 37bpm with which she is asymptomatic. Patient reports an upcoming appointment for pacemaker insertion 03/18/21 at [facility] I believe with Dr White. Mona, SOD CUTTER and I have both educated the patient on her increased risk for VTE and stroke and the recommendation for Xarelto. Xarelto added. (3) Left bundle branch block: Code(s): I44.7 - Left bundle-branch block, unspecified Status: Acute Assessment and Plan: Follow-up with cardiology. (4) Hypertension: Qualifiers: Hypertension type: unspecified Qualified Code(s): I10 - Essential (primary) hypertension Code(s): I10 - Essential (primary) hypertension Status: Chronic Assessment and Plan: BPs elevated yesterday and have improved a little with lasix. She was previously on losartan which she says she stopped taking since it made her feel unwell and her concerns for side effects. started on Entresto by Cardiology. DS: Summary Hospital Course Hospital Course: See above. Time Spent with Patient Time attestation: Total time spent providing and/or coordinating discharge services: 35 minutes. Exam Narrative: Exam Narrative: General: Well-developed, spry elderly female resting comfortably sitting up in bedside chair in no acute distress. HEENT: Wearing glasses. EOMI. Sclerae anicteric. Oral mucosa moist. Neck: Supple. Respiratory: Lungs are clear to auscultation bilaterally. Respirations even and nonlabored. Tolerating room air. Cardiovascular: Rate is bradycardic,
[2021-03-13 12:00] VITALS: PULSE 49
[2021-03-13 14:00] VITALS: BP 111/83; PULSE 56; RESP 18; TEMP 37.4; O2SAT 95
== END 2021-03-13 15:45 | disposition home or self-care (01) ==
LOC: ANHED 09:33 → ANH3MEDSUR 12:34
PROVIDERS: Emergency Medicine; Physician Assistant; Admitting Provider Internal Medicine; Emergency Provider Nurse Practitioner; PCP Registered Nurse; Visit Provider Internal Medicine
DX: I11.0 Hypertensive heart disease with heart failure (principal); I50.43 Acute on chronic combined systolic (congestive) and diastolic (congestive) heart failure; I44.7 Left bundle-branch block, unspecified; R06.02 Shortness of breath; I48.91 Unspecified atrial fibrillation; I08.3 Combined rheumatic disorders of mitral, aortic and tricuspid valves; R60.0 Localized edema; R01.1 Cardiac murmur, unspecified; M79.89 Other specified soft tissue disorders; Z79.899 Other long term (current) drug therapy
CPT/HCPCS: 36415; 71046; 80048; 80076; 82948; 83036; 83735; 83880; 84132; 84439; 84443; 84480; 85025; 85055; 93005; 93306; 93970; 96365; 96372; 96374; 96375; 96376; 99285; A9270; G0378; J1650; J1940; J3475

== ENCOUNTER 2022-02-08 10:56 | Emergency (ER) | payer MEDICARE, SELFPAY ==
--- NOTE | ~2022-02-08 | XR_ITS ---
XR knee RT 3V DATE: 02/08/2022 12:01 INDICATION: Knee pain and swelling. No injury. TECHNIQUE: 3 views COMPARISON: None FINDINGS: There is suprapatellar knee joint effusion. There is tricompartment osteoarthritis, most severe at the medial compartment with severe joint space narrowing and very prominent periarticular spurring of the medial femoral condyle and medial tibial patella. There is chondrocalcinosis. Osteopenia. No fracture, dislocation, periosteal reaction or bone destruction. Femoral and popliteal artery calcification. IMPRESSION: Prominent tricompartment osteophytosis, particularly severe at the medial compartment Chondrocalcinosis Knee joint effusion Reviewed, dictated and finalized at location A.
[2022-02-08 11:02] VITALS: BP 156/96; PULSE 68; RESP 18; TEMP 36.6; O2SAT 99
[2022-02-08] MEDS: FUROSEMIDE 20 MG TABLET PO (11:53)
--- NOTE | 2022-02-08 12:29 | ED.EXTPRO ---
HPI - Extremity Problem General Chief complaint: Extremity Problem,Nontraumatic Stated complaint: ? blood clot in leg Time Seen by Provider: 02/08/22 11:20 History of Present Illness HPI Narrative: 86-year-old female with history of blood clots presents with bilateral lower extremity edema, she is very concerned about blood clots even though she is already on blood thinners and has been taking them. She states that the lower extremity edema does improve when she took water pills from her doctor in the past, and also improve when she puts them off. She is also noting some pain in her right knee with movement has been increasing over the last few months. She is worried that she may be getting old. Related Data Allergies Allergy/AdvReac Type Severity Reaction Status Date / Time No Known Allergies Allergy Verified 02/08/22 11:18 Review of Systems Review of Systems: CONST: No fever. HEENT: No sore throat C/V: No chest pain RESP: No cough GI: No nausea or vomiting : No dysuria. M/S: Right knee pain, bilateral lower extremity edema SKIN: Rash left knee NEURO: [No focal numbness or weakness] PSYCH: [No depression] [facility] Past Medical History Medical History Hypertension Paroxysmal atrial fibrillation (~07/2014) Surgical History Surgical History No history of previous surgery Family History Family History Mother Heart disease Father Prostate carcinoma Sibling Diabetes mellitus Sibling Cancer Social History Social History Social History: The patient grew up in [place] [facility] but has been in the [facility] for many years. She is and had 4 children, 1 son who is . Lifelong nonsmoker. She drinks perhaps 1 alcoholic beverage in evening if that. No illicit substance use. She designates her son Lionel as her surrogate decision maker. Code status: Full code. Exam Narrative: EXAMINATION OF ORGAN SYSTEMS/BODY AREAS: Constitutional: Vital signs per nursing GENERAL:[No acute distress, non-toxic appearing.] HEAD: Normal with no signs of head trauma. EYES: EOMI, conjunctiva normal ENT: Hearing grossly intact LUNGS: Nonlabored breathing. HEART: [Regular rate and rhythm] ABD: [Soft], [nontender to palpation] EXT: Normal range of motion; bilateral pedal edema, non-pitting, negative Homans' sign. full range of motion right knee. SKIN: erythematous patch on the left leg that is nontender NEURO: [Alert and oriented x 3. No gross focal sensory or strength deficits.] PSYCH: Normal affect Course Vital Signs Vital signs: Vital Signs Temperature 97.9 F 02/08/22 11:02 Pulse Rate 68 02/08/22 11:02 Respiratory Rate 18 02/08/22 11:02 Blood Pressure 156/96 H 02/08/22 11:02 Pulse Oximetry 99 02/08/22 11:02 Oxygen Delivery Room Air 02/08/22 11:02 Temperature 97.9 F 02/08/22 11:02 Pulse Rate 68 02/08/22 11:02 Respiratory Rate 18 02/08/22 11:02 Blood Pressure 156/96 H 02/08/22 11:02 Pulse Oximetry 99 02/08/22 11:02 Oxygen Delivery Room Air 02/08/22 11:02 MDM - Extremity (Nontraumatic) MDM Narrative Medical decision making narrative: 86-year-old female presenting with bilateral lower extremity swelling, vital stable, exam shows nontender extremities, I have low concern for DVT as she is already therapeutic on her blood thinners, and the swelling is bilateral, I will obtain x-rays for her knee and start her on a low-dose Lasix. X-ray does confirm arthritis, I have asked her to follow-up with her primary care doctor. Stable for discharge home. Differential Diagnosis Differential diagnosis: Likely lower extremity edema and other (arthritis); Unlikely deep vein thrombosis of lower extremity Discharge Plan Discharge Clinical Impression: Pedal edema, Arthritis of knee Pat
== END 2022-02-08 13:00 | disposition home or self-care (01) ==
PROVIDERS: Emergency Provider Emergency Medicine
DX: R60.0 Localized edema (principal); M17.11 Unilateral primary osteoarthritis, right knee; I10 Essential (primary) hypertension; I48.0 Paroxysmal atrial fibrillation; M11.261 Other chondrocalcinosis, right knee
CPT/HCPCS: 73562; 99283; A9270

== ENCOUNTER 2023-02-21 16:17 | Outpatient (CLI) | payer MEDICARE, SELFPAY ==
[2023-02-21 16:50] LABS: Anion Gap 6 mmol/L (8-16); Blood Urea Nitrogen 24 mg/dL (7-17); Calcium 8.8 mg/dL (8.4-10.2); Carbon Dioxide 29 mmol/L (22-30); Chloride 104 mmol/L (98-107); Estimated Glomerular Filt Rate > 60; Glucose 123 mg/dL (65-110); Sodium 139 mmol/L (137-145)
== END 2023-02-21 16:18 | disposition home or self-care (01) ==
LOC: ANHLAB 16:19
PROVIDERS: Visit Provider Nurse Practitioner Adult Health
DX: R60.0 Localized edema (principal)
CPT/HCPCS: 36415; 80048

== ENCOUNTER 2024-01-29 17:43 | Emergency (ER) | payer MEDICARE, SELFPAY ==
--- NOTE | ~2024-01-29 | CT_ITS ---
EXAMINATION: CT brain wo con DATE: 01/29/2024 19:33 INDICATION: Head injury . TECHNIQUE: Computed tomography (CT) of the head was performed without intravenous contrast. The mA wa s adjusted according to patient size. Iterative reconstruction technique was employed. The dose-lengt h product was 605.33 mGy-cm. COMPARISON: None. FINDINGS: No acute intracranial hemorrhage or extra-axial fluid collection. No hydrocephalus, mass, or herniation. No acute ischemic infarct. Unremarkable dural venous sinus attenuation. No acute osseous abnormality. The aerated spaces are clear. Mild atrophy and chronic white matter change. Atherosclerotic intracranial calcification. Right basal ganglia calcification. IMPRESSION: No acute intracranial process. Reviewed, dictated and finalized at location K.
--- NOTE | ~2024-01-29 | CT_ITS ---
EXAMINATION: CT cervical spine wo con DATE: 01/29/2024 19:33 INDICATION: Fall TECHNIQUE: Computed tomography (CT) of the cervical spine was performed without intravenous contrast. Automated exposure control and iterative reconstruction technique were employed. The dose-length pro duct was 148.93 mGy-cm. COMPARISON: None. FINDINGS: Vertebral Body Alignment: Reversed lordosis centered at C5. Multilevel grade 1 listheses, likely on a degenerative basis. Craniocervical and atlantoaxial alignment: Moderate degenerative change. Alignment intact. Osseous structures/fracture: No evidence of a lytic or blastic process in the visualized spine. No e vidence of acute fracture. Cervical soft tissues: The paraspinal soft tissues planes are maintained. Degenerative changes: Multilevel severe degenerative disc disease and facet arthropathy. No severe ce ntral canal or neural foraminal narrowing. IMPRESSION: No acute fracture or traumatic malalignment in the cervical spine. Reviewed, dictated and finalized at location K.
--- NOTE | ~2024-01-29 | XR_ITS ---
EXAM: XR hip LT 2V w AP pelvis DATE: 01/29/2024 19:36 HISTORY: Fall/ LEFT HIP PAIN . COMPARISON: 02/22/2020. FINDINGS: Normal mineralization. Lumbar degenerative disc disease. Degenerative changes in the bilat eral hips and pubic symphysis. No lytic or blastic lesion. No fracture or dislocation. Pelvic phlebol iths. Mild scattered enthesopathy. Atherosclerotic calcifications. IMPRESSION: No acute osseous finding in the pelvis or left hip. Reviewed, dictated and finalized at location K.
[2024-01-29 18:09] VITALS: BP 124/78; PULSE 60; RESP 17; TEMP 36.8; O2SAT 95
[2024-01-29 20:11] VITALS: BP 134/69; PULSE 50; RESP 16; O2SAT 95
--- NOTE | 2024-01-29 20:25 | ED.FALL ---
HPI - Fall General Chief Complaint: Fall Stated Complaint: fall Time Seen by Provider: 01/29/24 19:23 History of Present Illness HPI Narrative: Patient is an 88-year-old female who presents to the emergency department this evening after a fall. Patient states that she was walking and accidentally tripped and fell. Patient believes she did hit her head, denies any loss of consciousness admits that she remembers the full events. Patient admits that she does take Xarelto and states that she was able to get herself back up after the fall and has been ambulatory. Patient ambulates using a cane. She is currently complaining of mild left hip pain, otherwise denies any additional symptoms including headaches, dizziness, focal weakness, blurry vision, numbness and tingling. There are no additional modifying, alleviating, or precipitating factors at this time. Related Data Allergies Allergy/AdvReac Type Severity Reaction Status Date / Time No Known Allergies Allergy Verified 12/19/23 13:25 Review of Systems Review of Systems: All systems are reviewed and are negative unless stated otherwise in the HPI. [facility] Past Medical History Medical History Bilateral primary osteoarthritis of knee Hypertension Paroxysmal atrial fibrillation (~07/2014) Surgical History Surgical History History of vein stripping Family History Family History Mother Heart disease Father Prostate carcinoma Sibling Diabetes mellitus Thyroid disorder Sibling Cancer Grandparent Heart disease Cancer Sibling Patient's sister is in good health Family history of malignant neoplasm Family history of diabetes mellitus in first degree relative Patient's sister is Patient's brother is Father Family history of heart disease in male family member before age 55 Patient's father is Mother Family history of heart disease in male family member before age 55 Patient's mother is Other Carcinoma of colon Family history of cardiovascular disease Family history of malignant neoplasm of breast in first degree relative Social History Social History Social History: The patient grew up in [place]. She is and had 4 children, 1 son who is . Lifelong nonsmoker. She drinks perhaps 1 alcoholic beverage in evening if that. No illicit substance use. She designates her son Lionel as her surrogate decision maker. Code status: Full code. Smoking status: Never smoker Alcohol intake: current Alcohol use details: occasionally Substance use: never Substance use type: does not use Do You Feel Safe in your Home?: Yes Lack of Transportation: No Lack of Food: Never True Current Housing: I Have Housing Concerned About Future Housing: No Difficulty Paying Gas/Electric Bills: No Difficulty Paying for Meds: No Currently Unemployed: No Education: Master's Degree or Higher Difficulty w/ Childcare or Family Care: No Living arrangements: alone Occupation/Education: retired Gender identity (if verbalized by the patient): Female Exam Narrative: General: Alert, awake, afebrile, in no acute distress. HEENT: PERRL, no rhinorrhea, no post nasal drip, oropharynx clear. Neck: Trachea midline, no JVD, no lymphadenopathy, no midline cervical spine tenderness to palpation. Cardiovascular: Regular rate and rhythm, no murmurs, rubs or gallops, no peripheral edema. Respiratory: Clear to auscultation bilaterally, no tachypnea, no wheezing, no rhonchi, no rubs, no respiratory distress. Abdomen: Soft, nontender, nondistended, no rebound, no guarding, no peritoneal signs. Musculoskeletal: Hematoma to left
== END 2024-01-29 20:34 | disposition home or self-care (01) ==
PROVIDERS: Emergency Provider Emergency Medicine
DX: S09.90XA Unspecified injury of head, initial encounter (principal); I10 Essential (primary) hypertension; M17.0 Bilateral primary osteoarthritis of knee; I48.91 Unspecified atrial fibrillation; W01.0XXA Fall on same level from slipping, tripping and stumbling without subsequent striking against object, initial encounter
CPT/HCPCS: 70450; 72125; 73502; 99284

== ENCOUNTER 2024-02-07 18:27 | Emergency (ER) | payer MEDICARE, SELFPAY ==
[2024-02-07 18:51] VITALS: BP 138/65; PULSE 55; RESP 16; TEMP 37; O2SAT 99
--- NOTE | 2024-02-07 20:58 | PC.NURSE ---
Pt to desk telling me she wants to go home and call cashier parking lot in the morning. Advised to return if anything gets worse or with any new concerns. Pt A&Ox4
== END 2024-02-07 20:58 | disposition left against medical advice (07) ==
DX: M79.662 Pain in left lower leg (principal)
CPT/HCPCS: 99199

== ENCOUNTER 2024-06-11 14:16 | Outpatient (CLI) | payer MEDICARE, SELFPAY ==
[2024-06-11 15:08] LABS: Basophils Absolute Auto 0.1 K/mm3 (0.0-0.1); Basophils Percent Auto 1.4 % (0.2-1.2); Eosinophils Absolute Auto 0.3 K/mm3 (0-0.3); Eosinophils Percent Auto 5.8 % (0-4.4); Hematocrit 34.3 % (37.0-47.0); Hemoglobin 10.9 g/dL (12.0-15.0); Immature Granulocyte Absolute 0.01 K/mm3 (0.00-0.031); Immature Granulocyte Percent A 0.2 % (0-0.5); Lymphocytes Absolute Auto 0.89 K/mm3 (0.9-3.2); Lymphocytes Percent Auto 20.5 % (18.3-44.2); Mean Corpuscular HGB Conc 31.8 g/dl (32-36); Mean Corpuscular Hemoglobin 30.5 pg (26-34); Mean Corpuscular Volume 96.1 fl (80-100); Mean Platelet Volume 12.2 fl (7.4-10.4); Monocytes Absolute Auto 0.6 K/mm3 (0.1-0.6); Monocytes Percent Auto 13.6 % (2.6-8.5); Neutrophils Absolute Auto 2.5 K/mm3 (1.3-6.7); Neutrophils Percent Auto 58.5 % (45.5-73.1); Platelet Count Result 134 k/mm3 (150-375); Red Blood Count 3.57 M/mm3 (4.2-5.4); Red Cell Distribution Width 17.5 % (11.5-14.5); White Blood Count 4.3 K/mm3 (4.5-10.0)
[2024-06-11 15:19] LABS: INR 1.3; Prothrombin Time 16.3 Seconds (11.1-14.7)
[2024-06-11 15:23] LABS: Alanine Aminotransferase 12 U/L (6-35); Albumin Level 3.9 g/dL (3.5-5.1); Alkaline Phosphatase 144 U/L (38-126); Anion Gap 3 mmol/L (4-12); Aspartate Amino Transferase 31 U/L (14-36); Bilirubin,Total 0.7 mg/dL (0.2-1.3); Blood Urea Nitrogen 28 mg/dL (7-17); Calcium 8.6 mg/dL (8.4-10.2); Carbon Dioxide 32 mmol/L (22-30); Chloride 102 mmol/L (98-107); Estimated Glomerular Filt Rate 59; Glucose 90 mg/dL (65-110); Lactate Dehydrogenase 197 U/L (120-246); Sodium 137 mmol/L (137-145)
[2024-06-11 15:26] LABS: Iron 95 ug/dL (37-170)
[2024-06-11 15:35] LABS: Percent Iron Saturation 21 % (20-50)
[2024-06-13 06:39] LABS: GGT 173 U/L (3-65)
[2024-06-13 17:04] LABS: Alpha-1-Antitrypsin, QN 203 mg/dL (83-199); Ceruloplasmin 36 mg/dL (14-48)
[2024-06-14 14:54] LABS: Alpha Fetoprotein Tumor Marker 4.6 ng/mL
[2024-06-15 12:28] LABS: Actin Antibody (IgG) <20 U (<20)
[2024-06-16 18:58] LABS: Mitochondrial (M2) Ab (IgG) <20.0 U
[2024-06-20 16:53] LABS: ALT 9 U/L (6-29); Alpha-2-Macroglobulin 172 mg/dL (106-279); Apolipoprotein A1 137 mg/dL (101-198); Fibrosis Score 0.61; Fibrosis Stage F3; GGT 168 U/L (3-65); Haptoglobin 75 mg/dL (43-212); Necroinflammat Act Grade A0; Reference ID 5143616; Total Bilirubin 0.5 mg/dL (0.2-1.2)
== END 2024-06-11 14:17 | disposition home or self-care (01) ==
LOC: ANHLAB 14:26
PROVIDERS: Visit Provider Nurse Practitioner Family
DX: K74.60 Unspecified cirrhosis of liver (principal); I50.43 Acute on chronic combined systolic (congestive) and diastolic (congestive) heart failure
CPT/HCPCS: 36415; 80048; 80076; 81596; 82103; 82105; 82390; 82728; 82977; 83520; 83540; 83550; 83615; 85025; 85610; 86038; 86039; 86364

== ENCOUNTER 2024-06-20 09:09 | Outpatient (CLI) | payer MEDICARE, SELFPAY ==
--- NOTE | ~2024-06-20 | US_ITS ---
EXAMINATION: US paracentesis abd w/image DATE: 06/20/2024 10:15 INDICATION: Ascites. TECHNIQUE: The procedure and its risks, benefits, and alternatives were discussed with the patient. P otential risks discussed included bleeding and infection. The skin was prepped and draped in sterile fashion. 1% lidocaine was used for local anesthesia. Under ultrasound guidance, a 5 Fr catheter with trochar was advanced into the ascites in the left lower quadrant. Fluid was aspirated. The catheter w as removed, and a dressing was applied. There were no immediate complications. FINDINGS: Ultrasound images demonstrate ascites and the catheter within the fluid. IMPRESSION: 1. Successful ultrasound-guided paracentesis yielding 725 mL of patti-colored fluid. Reviewed, dictated and finalized at location A.
[2024-06-20 11:29] LABS: Source Peritoneal Fluid Peritoneal Fluid
[2024-06-20 11:30] LABS: Appearance Peritoneal Fluid Cloudy (Clear); Color Peritoneal Fluid Yellow (Colorless); Lymphocytes Peritoneal Fluid 35 %; Macrophages Peritoneal Fluid 50 %; Mesothelial Cells Peritoneal Fluid 2 %; Monocytes Peritoneal Fluid 6 %; Neutrophils Peritoneal Fluid 7 % (0-25); Nucleated Cells Peritoneal Flu 701 /uL (0-500); RBC Peritoneal Fluid 8000 /uL (0-10000)
[2024-06-24 13:34] LABS: Albumin Peritoneal Fluid 1.6 g/dL; Total Protein Peritoneal Fluid <3.0 g/dL
== END 2024-06-20 09:10 | disposition home or self-care (01) ==
LOC: ANHIMG 09:13
PROVIDERS: Visit Provider Nurse Practitioner Family
DX: K74.60 Unspecified cirrhosis of liver (principal)
CPT/HCPCS: 49083; 82042; 84157; 87070; 87075; 87205; 89051

== ENCOUNTER 2024-10-24 10:06 | Outpatient (CLI) | payer MEDICARE, SELFPAY ==
[2024-10-24 10:56] LABS: Anion Gap 9 mmol/L (4-12); Blood Urea Nitrogen 50 mg/dL (7-17); Calcium 8.4 mg/dL (8.4-10.2); Carbon Dioxide 28 mmol/L (22-30); Chloride 101 mmol/L (98-107); Estimated Glomerular Filt Rate 57; Glucose 188 mg/dL (65-110); Potassium 4.4 mmol/L (3.4-5.0); Sodium 138 mmol/L (137-145)
--- OUTSIDE RECORDS SUMMARY | 2024-10-24 11:06 | XMS_ITS | Referral Summary ---
Author Organization [facility] [address] [place] [address] [address] [place] [address] Care Team Providers Care Farmworker Machine Name Role Phone Katelynn Moore MD Primary Care Provider Encounters Date Type Department Care Team Description 10/18/2024 3:30 PM REPORTING ANALYST Office Visit [facility] [address] [place] [address] Radha Acosta NP Dilated cardiomyopathy (CMS/HCC) (HCC) (Primary Dx); Cirrhosis of liver with ascites, unspecified hepatic cirrhosis type (HCC); Edema, lower extremity; Umbilical hernia without obstruction and without gangrene; SSS (sick sinus syndrome) (CMS/HCC) (HCC); Atrial fibrillation, unspecified type (HCC) 10/03/2024 5:44 PM REPORTING ANALYST - 10/03/2024 11:59 PM REPORTING ANALYST Hospital Encounter [facility] [address] [place] [id number] Discharge Disposition: Discharge to home or self care 10/03/2024 1:30 PM REPORTING ANALYST Office Visit 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); SSS (sick sinus syndrome) (CMS/HCC) (HCC) from Last 3 Months Allergies No known active allergies Medications MAGNESIUM GLYCINATE ORAL Take by mouth Active calcium carbonate/vitamin D3 (LIQUID CALCIUM WITH VITAMIN D ORAL) Take by mouth Active VITAMINS A AND D ORAL Take by mouth Active ascorbic acid (VITAMIN C ORAL) Take by mouth Active potassium chloride ER 10 mEq CR tabletIndications: Edema, lower extremity TAKE 1 TABLET (10 MEQ TOTAL) BY MOUTH 2 (TWO) TIMES A DAY 180 tablet 3 4 Active Entresto 24-26 mg tabletIndications: Dilated cardiomyopathy (CMS/HCC) (HCC) TAKE 1 TABLET BY MOUTH TWICE A DAY 60 tablet 5 4 Active bumetanide (BUMEX) 2 mg tabletIndications: Dilated cardiomyopathy (CMS/HCC) (HCC) Take 1 tablet (2 mg total) by mouth 2 (two) times a day Take the doses 6 hours apart 60 tablet 2 5 Active furosemide (LASIX) 20 mg tabletIndications: Edema, lower extremity TAKE 1 TABLET BY MOUTH TWICE A DAY 180 tablet 3 4 10/18/19 25 Discontinu ed(Alterna te therapy) Active Problems Problem Noted Date Diagnosed Date Cirrhosis of liver with asci gabby, unspecified hepatic cirrhosis type 10/03/2024 Chronic combined systolic an d diastolic heart failure (CMS/HCC) 10/03/2024 SSS (sick sinus syndrome) (CMS/HCC) 03/22/2022 A-fib (CMS/HCC) 03/22/2022 Dilated cardiomyopathy (CMS/HCC) 03/22/2022 Hypertension 07/04/2019 Systolic murmur 07/04/2019 Immunizations Name Administration Dates Next Due Pfizer SARS-CoV-2 Monovalent Vaccination (12+ Yrs) PURPLE 01/15/2021,12/25/2020 Social History Tobacco Use Types Packs/Day Years Used Date Smoking Tobacco: Never Smokeless Tobacco: Never Tobacco Cessation:Counseling Given: Not Answered Alcohol Use Standard Drinks/Week Comments Yes 0 (1 standard drink = 0.6 oz pur e alcohol) AUDIT-C Answer Date Recorded Q1: How often do you have a drink containing alcohol? Never 10/03/2024 Q2: How many drinks containi ng alcohol do you have on a typical day when you are drinking? Patient does not drink Q3: How often do you have si x or more drinks on one occasion? Never 10/03/2024 PHQ-2 Answer Date Recorded PHQ-2 Total Score (If total score is 3 or more points, staff should administer the PHQ-9) 0 03/22/2022 Comments No Sex and Gender Information Value Date Recorded Sex Assigned at Not on file Legal Sex Female 7:19 AM REPORTING ANALYST Gender Identity Not on file Sexual Orientation Not on file Last Filed Vital Signs Vital Sign Reading Time Taken Comments Blood Pressure 156/78 10/18/2024 3:36 PM REPORTING ANALYST Pulse 44 10/18/2024 3:36 PM REPORTING ANALYST Temperature 36.7 C (98 F) 10/03/2024 1:20 PM REPORTING ANALYST Respiratory Rate - - Oxygen Saturation 96% 10/18/2024 3:36 PM REPORTING ANALYST Inhaled Oxygen Concentration - - Weight 71.7 kg (158 lb) 10/18/2024 3:36 PM REPORTING ANALYST Height 162.6 cm (5' 4 ) 10/18/2024 3:36 PM REPORTING ANALYST Body Mass Index 27.12 10/18/2024 3:36 PM REPORTING ANALYST Plan of Treatment Not on file Procedures Procedure Name Priority Date/Time Associated Diagnosis Comments CT BODY OUTSIDE REFERENCE Routine 10/03/2024 5:44 PM REPORTING ANALYST from Last 3 Months Results * CT Body Outside Reference (10/03/2024 5:44 PM REPORTING ANALYST) Impressions [facility] - 10/03/2024 5:44 PM REPORTING ANALYST These images are for Reference purposes only and have not been reviewed by [facility]. There will be no report generated by a [facility] Radiologist. Narrative [facility] - 10/03/2024 5:44 PM REPORTING ANALYST EXAMINATION: Images For Reference Purposes Only us Omar Schmidt MD IMG CT PROCEDURES Final Result [facility] from Last 3 Months Insurance [employer] MEDICARE Care Teams Farmworker Machine Relationship Specialty Start Date End Date Katelynn Moore MD PCP - General Family Practice 03/22/22
--- OUTSIDE RECORDS SUMMARY | 2024-10-24 11:06 | XMS_ITS | Clinical Summary ---
Author Organization [facility] [employer] Address [address] [place] [address] Care Team Providers Care Product Responsibility Liaison Name Role Phone Kavya De La Paz APRN-FELT COVERER Primary Care Provider Source Comments [facility] [employer],non-owned Affiliates and Associated Physician Practices is amultiple site organization consisting of ambulatory clinics and hospital sitesin [place], [place], [place] and [place]. This disclosure is being madepursuant to the Care Everywhere program and may not contain all information available regarding this patient. Last updated 18.[facility] [employer] [facility] Allergies No known active allergies Medications Be aware that medications may not be up to date on this document. Always verify current medications with the patient. No known medications Social History Tobacco Use Types Packs/Day Years Used Date Smoking Tobacco: Never Smokeless Tobacco: Never Alcohol Use Standard Drinks/Week Comments Not Currently 0 (1 standard drink = 0.6 oz pur e alcohol) Sex and Gender Information Value Date Recorded Sex Assigned at Not on file Gender Identity Not on file Sexual Orientation Not on file Last Filed Vital Signs Vital Sign Reading Time Taken Comments Blood Pressure 155/89 11/08/2020 1:07 AM SIDE PULLER Pulse 65 11/08/2020 1:07 AM SIDE PULLER Temperature 36.9 C (98.5 F) 11/08/2020 1:07 AM SIDE PULLER Respiratory Rate 16 11/08/2020 1:07 AM SIDE PULLER Oxygen Saturation 100% 11/08/2020 1:07 AM SIDE PULLER Inhaled Oxygen Concentration - - Weight 68 kg (150 lb) 11/07/2020 9:48 PM SIDE PULLER Height 162.6 cm (5' 4 ) 11/07/2020 9:48 PM SIDE PULLER Body Mass Index 25.75 11/07/2020 9:48 PM SIDE PULLER Plan of Treatment Upcoming Encounters Date Type Department Care Team (Late st Contact Info) Description 12/03/2024 1:00 PM CDT Office Visit [facility] [address] [address] [facility] [place] [address] Dalia Neely, PROGRAM OFFICER-FELT COVERER [address] [facility] [address] [place] [address] Health Maintenance Due Date Last Done Comments BONE DENSITY TESTING 1934 DTAP/TDAP/TD VACCINES (1 - Tdap) 1953 PNEUMOCOCCAL VACCINE 50+ (1 of 1 - PCV) 1984 ZOSTER VACCINE (1 of 2) 1984 Respiratory Syncytial Virus (RSV) Vaccine Pt: or over 60 yrs (1 - 1-dose 75+ series) 2009 COVID-19 VACCINE ( - 2023-2 5 season) 2024 INFLUENZA VACCINE (#1) 2024 DEPRESSION SCREENING 09/12/2024 HEPATITIS B VACCINE Aged Out No longe r eligible based on patient's age to complete this topic HIB VACCINE Aged Out No longer eligi ble based on patient's age to complete this topic HPV VACCINE Aged Out No longer eligi ble based on patient's age to complete this topic MENINGOCOCCAL (Group B) VACCINE Aged Out No longer eligible based on patient's age to complete this topic MENINGOCOCCAL VACCINE Aged Out No tank di eligible based on patient's age to complete this topic Care Teams Product Responsibility Liaison Relationship Specialty Start Date End Date Kavya De La Paz, PROGRAM OFFICER-FELT COVERER [address] [place] [id number] PCP - General Nurse Practitioner 11/07/20
--- OUTSIDE RECORDS SUMMARY | 2024-10-24 11:06 | XMS_ITS | Patient Health Summary ---
Author Organization [email or web address] Address [address] [address] Care Team Providers Care Manager Financial Planning Name Role Phone Kavya De La Paz APRN-MUCKING MACHINE OPERATOR Primary Care Provider Note from [facility],non-owned Affiliates and Associated Physician Practices is amultiple site organization consisting of ambulatory clinics and hospital sitesin [place], [place], [place] and [place]. This disclosure is being madepursuant to the Care Everywhere program and may not contain all information available regarding this patient. Last updated 18.[email or web address] Allergies No known active allergies Medications Be [...] Comments Blood Pressure 155/89 11/08/2020 1:07 AM [employer] Pulse 65 11/08/2020 1:07 AM [employer] Temperature 36.9 C (98.5 F) 11/08/2020 1:07 AM [employer] Respiratory Rate 16 11/08/2020 1:07 AM [employer]MP[employer] Oxygen Saturation 100% 11/08/2020 1:07 AM [employer] Inhaled Oxygen Concentration - - Weight 68 kg (150 lb) 11/07/2020 9:48 PM [employer] Height 162.6 cm (5' 4 ) 11/07/2020 9:48 PM [employer] Body Mass Index 25.75 11/07/2020 9:48 PM [employer] Procedures * XR HAND LEFT 3VW OR MORE(Performed 11/08/2020) Performed for Trauma, Left hand pain * CT THORACIC SPINE WO CONTRAST(Performed 11/07/2020) Performed for Trauma, Mediastinal widening * CT LUMBAR SPINE WO CONTRAST(Performed 11/07/2020) Performed for Trauma, Mediastinal widening * CT CHEST ABDOMEN PELVIS W CONT(Performed 11/07/2020) Performed for Trauma, Mediastinal widening * URINALYSIS W/MICROSCOPIC NO CULTURE(Performed 11/07/2020) * URINE DRUG SCREEN IMMUNOASSAY(Performed 11/07/2020) * CT CERVICAL SPINE WO CONTRAST(Performed 11/07/2020) Performed for Trauma * CT HEAD WO CONTRAST(Performed 11/07/2020) Performed for Trauma * XR PELVIS 1 OR 2VW(Performed 11/07/2020) Performed for Trauma * XR KNEE RIGHT 2VW OR LESS(Performed 11/07/2020) Performed for Trauma * XR CHEST 1VW PORTABLE(Performed 11/07/2020) Performed for Trauma * PT-INR [facility](Performed 11/07/2020) * CBC W AUTO DIFFERENTIAL(Performed 11/07/2020) * BASIC METABOLIC PANEL (CALCIUM TOTAL)(Performed 11/07/2020) * ALCOHOL ETHYL BLOOD(Performed 11/07/2020) Results * XR HAND LEFT 3VW OR MORE (11/08/2020 12:18 AM SUPERVISOR [employer]MPING) Anatomical Region Laterality Modality Wrist / Hand Radiographic Gaby ging 11/08/2020 12:5 8 AM [employer] Impressions 11/09/2020 9:59 AM [employer] IMPRESSION: No acute fracture or dislocation identified. Dictated by Shirin Cook DO (resident). I, Dr. ADRIAN FROST have personally reviewed and interpreted this examination/study. This report was electronically signed by ADRIAN FROST on 11/09/2020 9:59 AM . Narrative 11/09/2020 9:59 AM [employer] ORDER DATE: 11/08/2020 12:19 AM EXAMINATION: XR HAND LEFT 3VW OR MORE HISTORY: T14.90XA: Trauma M79.642: Left hand pain COMPARISON: No prior study is available for comparison. FINDINGS: The osseous structures are intact and well aligned without acute fracture or dislocation. Bone density and texture are normal. No soft tissue swelling is present. Procedure Note Adrian Frost DO - 11/09/2020 ORDER DATE: 11/08/2020 12:19 AM EXAMINATION: XR HAND LEFT 3VW OR MORE HISTORY: T14.90XA: Trauma M79.642: Left hand pain COMPARISON: No prior study is available for comparison. FINDINGS: The osseous structures are intact and well aligned without acutefracture or dislocation. Bone density and texture are normal. No soft tissue swelling is present. IMPRESSION: No acute fracture or dislocation identified. Dictated by Shirin Cook DO (resident). Dr. ADRIAN Castelan have personally reviewed and interpreted this examination/study. This report was electronically signed by ADRIAN FROST on 11/09/2020 9:59 AM . Cb Lentz MD DIAGNOSTIC IMAG ING ORDERABLES * CT CHEST ABDOMEN PELVIS W CONT (11/07/2020 11:06 PM [employer]MPING) Anatomical Region Laterality Modality Chest, Abdomen, Pelvis Computed Tomography 11/07/2020 11:0 1 PM [employer] Impressions 11/08/2020 12:22 PM [employer] Impression: 1.No acute process identified in the chest, abdomen or pelvis. 2.Cardiomegaly. Tortuous aorta that may account for the appearance of widened mediastinum. Dilated pulmonary artery that may suggest pulmonary hypertension. 3.Incidental findings: Moderate atherosclerosis, small nonobstructing right renal calculus, subcutaneous fluid and stranding lateral to the left hip of uncertain etiology (contusion?). Report drafted by En uRssell (resident) Dr. SHIRLEY Castelan M.D. have personally reviewed and interpreted this examination/study. This report was electronically signed by SHIRLEY TAPIA M.D. on 11/08/2020 12:22 PM . Narrative 11/08/2020 12:22 PM [employer] Procedure Information DATE: 11/07/2020 10:47 PM EXAMINATION: Computed tomography (CT) of the chest, abdomen, and pelvis with contrast TECHNIQUE: CT of the chest, abdomen, and pelvis was performed after the uneventful administration of 100 mL of Isovue 370 intravenous contrast according to standard protocol. Clinical Information HISTORY: T14.90XA: Trauma R93.89: Mediastinal widening COMPARISON: None. Findings Chest: Lines/Tubes: None. Lower neck and axillae: Normal. Mediastinum and Kate: No enlarged lymph nodes are present. Heart and Pericardium: Cardiomegaly. No pericardial fluid or thickening is present. Tortuous descending aorta. The pulmonary artery is dilated having a diameter of 4.3 cm that may suggest pulmonary hypertension. Lung Parenchyma, Airways, and Pleural Spaces: No pulmonary parenchymal or airway process is present. There is no pleural effusion or pneumothorax. Abdomen/pelvis: Hepatobiliary: There is a 1 cm enhancing lesion in the left hepatic lobe (series 5 image 57); vessels extending to this lesion suggest an AVM. Alternatively, this may represent a flash fill hemangioma. There is no biliary dilatation. Minimal ascites is seen beneath the right diaphragm anteriorly Pancreas: Normal. Spleen: Normal. Kidneys: A 6 mm nonobstructing right renal stone is seen. There is a right parapelvic cyst. Adrenals: Normal. Retroperitoneum: Normal. Peritoneum: Normal. Gastrointestinal: The stomach and visualized loops of bowel are unremarkable. There is mild sigmoid diverticulosis. Appendix: The appendix is not seen with certainty. There is no inflammatory change in the right lower quadrant. Pelvic Structures: There are dilated veins in the parametrial and adnexal regions. The ovarian veins are dilated. Vasculature: Moderate atherosclerotic changes. Bones: The visible osseous structures are intact. Degenerative changes are seen in the spine. Soft tissues: Small fat-containing umbilical hernia. There is fluid and stranding in the subcutaneous tissues lateral to the left hip that may represent contusion. Procedure Note Shirley Tapia MD - 11/08/2020 Procedure Information DATE: 11/07/2020 10:47 PM EXAMINATION: Computed tomography (CT) of the chest, abdomen, and pelvis with contrast TECHNIQUE: CT of the chest, abdomen, and pelvis was performed after the uneventful administration of 100 mL of Isovue 370 intravenous contrast according to standard protocol. Clinical Information HISTORY: T14.90XA: Trauma R93.89: Mediastinal widening COMPARISON: None. Findings Chest: Lines/Tubes: None. Lower neck and axillae: Normal. Mediastinum and Kate: No enlarged lymph nodes are present. Heart and Pericardium: Cardiomegaly. No pericardial fluid or thickening is present. Tortuous descending aorta. The pulmonary artery is dilated having a diameter of4.3 cm that may suggest pulmonary hypertension. Lung Parenchyma, Airways, and Pleural Spaces: No pulmonary parenchymal or airway process is present. There is no pleural effusion or pneumothorax. Abdomen/pelvis: Hepatobiliary: There is a 1 cm enhancing lesion in the left hepatic lobe (series 5image 57); vessels extending to this lesion suggest an AVM. Alternatively,this may represent a flash fill hemangioma. There is no biliary dilatation. Minimal ascites is seen beneath the right diaphragm anteriorly Pancreas: Normal. Spleen: Normal. Kidneys: A 6 mm nonobstructing right renal stone is seen. There is a right parapelvic cyst. Adrenals: Normal. Retroperitoneum: Normal. Peritoneum: Normal. Gastrointestinal: The stomach and visualized loops of bowel are unremarkable. There ismild sigmoid diverticulosis. Appendix: The appendix is not seen with certainty. There is no inflammatory change in the right lower quadrant. Pelvic Structures: There are dilated veins in the parametrial and adnexal regions. The ovarian veins are dilated. Vasculature: Moderate atherosclerotic changes. Bones: The visible osseous structures are intact. Degenerative changes are seen in the spine. Soft tissues: Small fat-containing umbilical hernia. There is fluid and stranding inthe subcutaneous tissues lateral to the left hip that may representcontusion. Impression: 1.No acute process identified in the chest, abdomen or pelvis. 2.Cardiomegaly. Tortuous aorta that may account for the appearance of widened mediastinum. Dilated pulmonary artery that may suggest pulmonary hypertension. 3.Incidental findings: Moderate atherosclerosis, small nonobstructing right renal calculus, subcutaneous fluid and stranding lateral to theleft hip of uncertain etiology (contusion?). Report drafted by En Russell (resident) I, Dr. SHIRLEY TAPIA M.D. have personally reviewed and interpreted this examination/study. This report was electronically signed by SHIRLEY TAPIA M.D. on 11/08/2020 12:22 PM . Deacon Armin Bartlett MD CT ORDERABLES * CT LUMBAR SPINE WO CONTRAST (11/07/2020 11:06 PM [employer]MPING) Anatomical Region Laterality Modality Spine Computed Tomogra phy 11/07/2020 11:0 6 PM [employer] Impressions 11/08/2020 2:00 PM [employer]MP[employer] IMPRESSION: 1.No acute fracture of the thoracic and lumbar spine. Please refer to the separately dictated report of CT scan of the chest, abdomen and pelvis for intrathoracic and intra-abdominal findings. Report dictated by Shirin Cook DO (vice president of business development). I, Dr. YVONNE VALDOVINOS have personally reviewed and interpreted this examination/study. This report was electronically signed by YVONNE VALDOVINOS on 11/08/2020 2:00 PM . Narrative 11/08/2020 2:00 PM [employer] EXAMINATION: 1.CT of the thoracic spine 2.CT of the lumbar spine HISTORY: T14.90XA: Trauma R93.89: Mediastinal widening TECHNIQUE: CT of the thoracic and lumbar spines were reformatted from the concurrently obtained CT scan of the chest, abdomen and pelvis. COMPARISON: No prior study is available for comparison at the time of this dictation. FINDINGS: Thoracic spine: There is no acute fracture. There is exaggerated thoracic kyphosis and dextrocurvature of the thoracic spine centered T8. There is no subluxation. There are no aggressive appearing lytic or sclerotic lesions. There is no significant spinal canal or foraminal stenosis. Multilevel degenerative changes are present without significant spinal canal or foraminal stenosis. Mild diffuse osseous demineralization is present. Lumbar spine: There is no acute fracture. There is mild levocurvature of the lumbar spine centered at L3. There is 2 mm of retrolisthesis of L4 over L5 and slight retrolisthesis of L5 over S1. There are no aggressive appearing lytic or sclerotic lesions. There is spinal canal stenosis at L4-5 and possibly at L3-4. There is no significant foraminal stenosis. Significant facet hypertrophy is seen at multiple levels. Please refer to the separately dictated report of CT scan of the chest, abdomen and pelvis for intrathoracic and intra-abdominal findings. Procedure Note Yvonne Valdovinos MD - 11/08/2020 EXAMINATION: 1.CT of the thoracic spine 2.CT of the lumbar spine HISTORY: T14.90XA: Trauma R93.89: Mediastinal widening TECHNIQUE: CT of the thoracic and lumbar spines were reformatted fromthe concurrently obtained CT scan of the chest, abdomen and pelvis. COMPARISON: No prior study is available for comparison at the time ofthis dictation. FINDINGS: Thoracic spine: There is no acute fracture. There is exaggerated thoracic kyphosis and dextrocurvature of thethoracic spine centered T8. There is no subluxation. There are no aggressive appearing lytic or sclerotic lesions. There is no significant spinalcanal or foraminal stenosis. Multilevel degenerative changes are presentwithout significant spinal canal or foraminal stenosis. Mild diffuse osseous demineralization is present. Lumbar spine: There is no acute fracture. There is mild levocurvature of the lumbar spine centered at L3. There is2 mm of retrolisthesis of L4 over L5 and slight retrolisthesis of L5 over S1. There are no aggressive appearing lytic or sclerotic lesions. Thereis spinal canal stenosis at L4-5 and possibly at L3-4. There is no significant foraminal stenosis. Significant facet hypertrophy is seen at multiple levels. Please refer to the separately dictated report of CT scan of the chest, abdomen and pelvis for intrathoracic and intra-abdominal findings. IMPRESSION: 1.No acute fracture of the thoracic and lumbar spine. Please refer to the separately dictated report of CT scan of the chest, abdomen and pelvis for intrathoracic and intra-abdominal findings. Report dictated by Shirin Cook DO (vice president of business development). Dr. YVONNE Castelan have personally reviewed and interpreted this examination/study. This report was electronically signed by YVONNE VALDOVINOS on 11/08/2020 2:00PM . Deacon Armin Bartlett MD CT ORDERABLES * CT THORACIC SPINE WO CONTRAST (11/07/2020 11:06 PM [employer]MPING) Anatomical Region Laterality Modality Spine Computed Tomogra phy 11/08/2020 9:53 PM [employer]MP[employer] Impressions 11/08/2020 9:53 PM [employer]PER[employer]MPING IMPRESSION: 1.No acute fracture of the thoracic and lumbar spine. Please refer to the separately dictated report of CT scan of the chest, abdomen and pelvis for intrathoracic and intra-abdominal findings. Dr. YVONNE Castelan have personally reviewed and interpreted this examination/study. This report was electronically signed by YVONNE VALDOVINOS on 11/08/2020 9:53 PM . Narrative 11/08/2020 9:53 PM [employer]MPING EXAMINATION: 1.CT of the thoracic spine 2.CT of the lumbar spine HISTORY: T14.90XA: Trauma R93.89: Mediastinal widening TECHNIQUE: CT of the thoracic and lumbar spines were reformatted from the concurrently obtained CT scan of the chest, abdomen and pelvis. COMPARISON: No prior study is available for comparison at the time of this dictation. FINDINGS: Thoracic spine: There is no acute fracture. There is exaggerated thoracic kyphosis and dextrocurvature of the thoracic spine centered T8. There is no subluxation. There are no aggressive appearing lytic or sclerotic lesions. There is no significant spinal canal or foraminal stenosis. Multilevel degenerative changes are present without significant spinal canal or foraminal stenosis. Mild diffuse osseous demineralization is present. Lumbar spine: There is no acute fracture. There is mild levocurvature of the lumbar spine centered at L3. There is 2 mm of retrolisthesis of L4 over L5 and slight retrolisthesis of L5 over S1. There are no aggressive appearing lytic or sclerotic lesions. There is spinal canal stenosis at L4-5 and possibly at L3-4. There is no significant foraminal stenosis. Significant facet hypertrophy is seen at multiple levels. Please refer to the separately dictated report of CT scan of the chest, abdomen and pelvis for intrathoracic and intra-abdominal findings. Procedure Note Yvonne Valdovinos MD - 11/08/2020 EXAMINATION: 1.CT of the thoracic spine 2.CT of the lumbar spine HISTORY: T14.90XA: Trauma R93.89: Mediastinal widening TECHNIQUE: CT of the thoracic and lumbar spines were reformatted fromthe concurrently obtained CT scan of the chest, abdomen and pelvis. COMPARISON: No prior study is available for comparison at the time ofthis dictation. FINDINGS: Thoracic spine: There is no acute fracture. There is exaggerated thoracic kyphosis and dextrocurvature of thethoracic spine centered T8. There is no subluxation. There are no aggressive appearing lytic or sclerotic lesions. There is no significant spinalcanal or foraminal stenosis. Multilevel degenerative changes are presentwithout significant spinal canal or foraminal stenosis. Mild diffuse osseous demineralization is present. Lumbar spine: There is no acute fracture. There is mild levocurvature of the lumbar spine centered at L3. There is2 mm of retrolisthesis of L4 over L5 and slight retrolisthesis of L5 over S1. There are no aggressive appearing lytic or sclerotic lesions. Thereis spinal canal stenosis at L4-5 and possibly at L3-4. There is no significant foraminal stenosis. Significant facet hypertrophy is seen at multiple levels. Please refer to the separately dictated report of CT scan of the chest, abdomen and pelvis for intrathoracic and intra-abdominal findings. IMPRESSION: 1.No acute fracture of the thoracic and lumbar spine. Please refer to the separately dictated report of CT scan of the chest, abdomen and pelvis for intrathoracic and intra-abdominal findings. I, Dr. YVONNE VALDOVINOS have personally reviewed and interpreted this examination/study. This report was electronically signed by YVONNE VALDOVINOS on 11/08/2020 9:53PM . Deacon Armin Bartlett MD CT ORDERABLES * (ABNORMAL) URINALYSIS W/MICROSCOPIC NO CULTURE (11/07/2020 5:20 PM SUPERVISOR DUMPING) Color UA Yellow Straw, Yellow, Colorless 11/07/2020 5:39 PM [facility] Clarity UA Clear Clear, Slt Cloudy 11/07/2020 5:39 PM [facility] Specific [place] UA 1.015 1.005 - 1.030 11/07/2020 5:39 PM [facility] pH UA 7.0 5.0 - 8.0 pH 11/07/2020 5:39 PM [facility] Protein UA 1+(A) Negative mg/dL 11/07/2020 5:39 PM [facility] Glucose UA Negative Negative mg/dL 11/07/2020 5:39 PM [facility] Ketone UA Negative Negative mg/dL 11/07/2020 5:39 PM [facility] Bilirubin UA Negative Negative mg/dL 11/07/2020 5:39 PM [facility] Blood UA Negative Negative 11/07/2020 5:39 PM [facility] Nitrite UA Negative Negative 11/07/2020 5:39 PM [facility] Leukocyte Esterase Trace(A) Negative 11/07/2020 5:39 PM [facility] Urobilinogen UA Negative Negative mg/dL 11/07/2020 5:39 PM [facility] RBC UA 0-2 None Seen, 0-2, 3-5 /HPF 11/07/2020 5:39 PM [facility] WBC UA 6-10(A) None Seen, 0-5 /HPF 11/07/2020 5:39 PM [facility] Squamous Epithelial Cells UA 0-2 None Seen, 0-2 /HPF 11/07/2020 5:39 PM [facility] Renal Epithelial Cells UA 0-2 None Seen, 0-2 /HPF 11/07/2020 5:39 PM [facility] Urine URINE SPECIMEN OBTAINED BY CLEAN CATCH PROCEDURE / Unknown Collection / Unknown 11/07/2020 5:20 PM [employer] 11/07/2020 5:30 PM [facility]OR [employer]MP[facility] - 11/07/2020 5:39 PM [employer]PER[employer]MPING Allan Glass MD LAB - URINALYSIS ORD ERABLES Performing Organization Address City/State/[facility] Co de Phone Number [facility] [address] [place] [phone], [facility] [phone] * DRUG SCREEN TOX URINE PANEL (11/07/2020 5:20 PM SUPERVISOR DUMPING) [facility] Amphetamines Screen Urine Negative Negative: < 1000 ng/mL 11/07/2020 5:52 PM [facility] Barbiturates Screen Urine Negative Negative: < 200 ng/mL 11/07/2020 5:52 PM [facility] Benzodiazepine Screen Urine Negative Negative: < 200 ng/mL 11/07/2020 5:52 PM [facility] Opiates Urine Negative Negative: < 300 ng/mL 11/07/2020 5:52 PM [facility] Cocaine Metabolites Urine Negative Negative: < 300 ng/mL 11/07/2020 5:52 PM [facility] Phencyclidine Screen Urine Negative Negative: < 25 ng/ml 11/07/2020 5:52 PM [facility] Cannabinoids Screen Urine Negative Negative: <50 ng/mL 11/07/2020 5:52 PM [facility] Methadone Screen Urine Negative Negative: < 300 ng/mL 11/07/2020 5:52 PM [facility] Fentanyl Screen Urine Negative Negative: <1.0 ng/mL 11/07/2020 5:52 PM [facility] Urine URINE / Unknown Collection / Unknown 11/07/2020 5:20 PM [employer]MP[employer] 11/07/2020 5:39 PM [facility] [employer] Narrative [facility] - 11/07/2020 5:52 PM SUPERVISOR DUMPING The Urine Toxicology Screening Panel does not screen for Propoxyphene, Meprobamate, Carisoprodol, Trazodone, [id number] medications and/or volatiles (Acetone, Isopropanol, Methanol or Ethylene Glycol). Ethanol, Salicylate, Acetaminophen, Tricyclic Antidepressants and several therapeutic drugs may be individually assayed in serum or plasma specimen. Toxicology testing by the [facility] is an aid to medical diagnosis and treatment of patients. No documented chain of custody was maintained. Results are intended to be used for clinical purposes only. Deacon Armin Bartlett MD LAB - URINE TABLE TOP TILE SETTER RY ORDERABLES [facility] [address] [place] [phone], [facility] [phone] * CT CERVICAL SPINE WO CONTRAST - C-Spine Trauma, Spine fracture (11/07/2020 5:07 PM SUPERVISOR DUMPING) Anatomical Region Laterality Modality Spine Computed Tomogra phy 11/07/2020 5:14 PM [employer]MP[employer] Impressions 11/08/2020 8:55 AM [employer]PER[employer]OR [employer]MPING IMPRESSION: No acute intracranial abnormality. No cervical spine fracture. I, Dr. YVONNE VALDOVINOS have personally reviewed and interpreted this examination/study. This report was electronically signed by YVONNE VALDOVINOS on 11/08/2020 8:55 AM . Narrative 11/08/2020 8:55 AM [employer]MPING EXAMINATION: Computed tomography (CT) of the head without intravenous contrast CT of the cervical spine without intravenous contrast HISTORY: Trauma TECHNIQUE: CT of the head and cervical spine was performed without contrast according to standard protocol. COMPARISON: No prior study is available for comparison at the time of this dictation.. FINDINGS: Head: There is no acute hemorrhage. There is mild cerebral volume loss appropriate for patient's age. Mild chronic microvascular ischemic changes are also seen. There is no hydrocephalus, midline shift or extra-axial fluid collection. Vascular calcifications of the carotid siphons and vertebral arteries are noted. The paranasal sinuses and tympanomastoid cavities are aerated. The orbits are unremarkable. There is no skull fracture. Cervical spine: There is no fracture. The prevertebral soft tissues are within normal limits. There are multilevel degenerative changes, most pronounced at C5-6, C6-7 and C7-T1. There is 3 mm retrolisthesis of C5 relative to C6, presumed degenerative. Mild spinal canal stenosis is seen at C5-6. There is moderate stenosis of the left C5-6 neural foramen due to prominent uncovertebral hypertrophy. Generalized osseous demineralization is noted. There are no aggressive appearing lytic or sclerotic lesions. Procedure Note Yvonne Valdovinos MD - 11/08/2020 EXAMINATION: Computed tomography (CT) of the head without intravenous contrast CT of the cervical spine without intravenous contrast HISTORY: Trauma TECHNIQUE: CT of the head and cervical spine was performed without contrast according to standard protocol. COMPARISON: No prior study is available for comparison at the time ofthis dictation.. FINDINGS: Head: There is no acute hemorrhage. There is mild cerebral volume loss appropriate for patient's age. Mild chronic microvascular ischemicchanges are also seen. There is no hydrocephalus, midline shift or extra-axial fluid collection. Vascular calcifications of the carotid siphons and vertebral arteries are noted. The paranasal sinuses and tympanomastoid cavities are aerated. The orbits are unremarkable. There is no skull fracture. Cervical spine: There is no fracture. The prevertebral soft tissues are within normal limits. There are multilevel degenerative changes, most pronounced at C5-6, C6-7 and C7-T1. There is 3 mm retrolisthesis of C5 relative to C6, presumed degenerative. Mild spinal canal stenosis is seen at C5-6. There is moderate stenosis of the left C5-6 neural foramen due to prominent uncovertebral hypertrophy. Generalized osseous demineralization isnoted. There are no aggressive appearing lytic or sclerotic lesions. IMPRESSION: No acute intracranial abnormality. No cervical spine fracture. I, Dr. YVONNE VALDOVINOS have personally reviewed and interpreted this examination/study. This report was electronically signed by YVONNE VALDOVINOS on 11/08/2020 8:55AM . Deacon Armin Bartlett MD CT ORDERABLES * CT HEAD WO CONTRAST - Head Trauma, CSF leak, mental status changes (11/07/2020 5:07 PM SUPERVISOR DUMPING) Anatomical Region Laterality Modality Head Computed Tomogra phy 11/07/2020 5:14 PM SUPERVISOR DUMPING Impressions 11/08/2020 8:55 AM SUPERVISOR DUMPING IMPRESSION: No acute intracranial abnormality. No cervical spine fracture. I, Dr. YVONNE VALDOVINOS have personally reviewed and interpreted this examination/study. This report was electronically signed by YVONNE VALDOVINOS on 11/08/2020 8:55 AM . Narrative 11/08/2020 8:55 AM SUPERVISOR DUMPING EXAMINATION: Computed tomography (CT) of the head without intravenous contrast CT of the cervical spine without intravenous contrast HISTORY: Trauma TECHNIQUE: CT of the head and cervical spine was performed without contrast according to standard protocol. COMPARISON: No prior study is available for comparison at the time of this dictation.. FINDINGS: Head: There is no acute hemorrhage. There is mild cerebral volume loss appropriate for patient's age. Mild chronic microvascular ischemic changes are also seen. There is no hydrocephalus, midline shift or extra-axial fluid collection. Vascular calcifications of the carotid siphons and vertebral arteries are noted. The paranasal sinuses and tympanomastoid cavities are aerated. The orbits are unremarkable. There is no skull fracture. Cervical spine: There is no fracture. The prevertebral soft tissues are within normal limits. There are multilevel degenerative changes, most pronounced at C5-6, C6-7 and C7-T1. There is 3 mm retrolisthesis of C5 relative to C6, presumed degenerative. Mild spinal canal stenosis is seen at C5-6. There is moderate stenosis of the left C5-6 neural foramen due to prominent uncovertebral hypertrophy. Generalized osseous demineralization is noted. There are no aggressive appearing lytic or sclerotic lesions. Procedure Note Yvonne Valdovinos MD - 11/08/2020 EXAMINATION: Computed tomography (CT) of the head without intravenous contrast CT of the cervical spine without intravenous contrast HISTORY: Trauma TECHNIQUE: CT of the head and cervical spine was performed without contrast according to standard protocol. COMPARISON: No prior study is available for comparison at the time ofthis dictation.. FINDINGS: Head: There is no acute hemorrhage. There is mild cerebral volume loss appropriate for patient's age. Mild chronic microvascular ischemicchanges are also seen. There is no hydrocephalus, midline shift or extra-axial fluid collection. Vascular calcifications of the carotid siphons and vertebral arteries are noted. The paranasal sinuses and tympanomastoid cavities are aerated. The orbits are unremarkable. There is no skull fracture. Cervical spine: There is no fracture. The prevertebral soft tissues are within normal limits. There are multilevel degenerative changes, most pronounced at C5-6, C6-7 and C7-T1. There is 3 mm retrolisthesis of C5 relative to C6, presumed degenerative. Mild spinal canal stenosis is seen at C5-6. There is moderate stenosis of the left C5-6 neural foramen due to prominent uncovertebral hypertrophy. Generalized osseous demineralization isnoted. There are no aggressive appearing lytic or sclerotic lesions. IMPRESSION: No acute intracranial abnormality. No cervical spine fracture. Dr. YVONNE Castelan have personally reviewed and interpreted this examination/study. This report was electronically signed by YVONNE VALDOVINOS on 11/08/2020 8:55AM . Deacon Armin Bartlett MD CT ORDERABLES * XR PELVIS 1 OR 2VW (11/07/2020 4:45 PM SUPERVISOR DUMPING) Anatomical Region Laterality Modality Pelvis Radiographic Gaby ging 11/07/2020 5:11 PM SUPERVISOR [employer]MPING Impressions 11/08/2020 5:59 PM [employer]PERVISOR DUMPING IMPRESSION: No acute fracture identified. Dictated by Rafa Ornelas MD (vice president of business development). Dr. SHIRLEY Castelan M.D. have personally reviewed and interpreted this examination/study. This report was electronically signed by SHIRLEY TAPIA M.D. on 11/08/2020 5:59 PM . Narrative 11/08/2020 5:59 PM [employer] EXAMINATION: XR PELVIS 1 OR 2VW HISTORY: Trauma Fracture suspected COMPARISON: No prior study is available for comparison. FINDINGS: No acute fracture is identified. The femoral heads appear well-seated within their respective acetabula. The pubic symphysis is intact. Bone density and texture are normal. The sacroiliac joints are normal. Procedure Note Shirley Tapia MD - 11/08/2020 EXAMINATION: XR PELVIS 1 OR 2VW HISTORY: Trauma Fracture suspected COMPARISON: No prior study is available for comparison. FINDINGS: No acute fracture is identified. The femoral heads appear well-seated within their respective acetabula. The pubic symphysis is intact. Bone density and texture are normal. The sacroiliac joints are normal. IMPRESSION: No acute fracture identified. Dictated by Rafa Ornelas MD (vice president of business development). Dr. SHIRLEY Castelan M.D. have personally reviewed and interpreted this examination/study. This report was electronically signed by SHIRLEY TAPIA M.D. on 11/08/2020 5:59 PM . Deacon Armin Bartlett MD DIAGNOSTIC IMAGING ORDERABLES * XR KNEE RIGHT 2VW OR LESS (11/07/2020 4:45 PM SUPERVISOR DUMPING) Anatomical Region Laterality Modality Lower Extremity Radiographic Gaby ging 11/07/2020 5:10 PM SUPERVISOR DUMPING Impressions 11/08/2020 5:31 PM [employer]PERVISOR [employer]MPING IMPRESSION: Significant swelling overlying the patella. No acute fracture or dislocation identified. Osteoarthritis, severe in the medial compartment. Dictated by Rafa Ornelas MD (vice president of business development). Dr. SHIRLEY Castelan M.D. have personally reviewed and interpreted this examination/study. This report was electronically signed by SHIRLEY TAPIA M.D. on 11/08/2020 5:31 PM . Narrative 11/08/2020 5:31 PM [employer]MP[employer] EXAMINATION: XR KNEE RIGHT 2VW OR LESS HISTORY: T14.90XA: Trauma COMPARISON: No prior study is available for comparison. FINDINGS: The osseous structures are intact and well aligned without acute fracture or dislocation. There is asymmetric joint space narrowing, severe in the medial compartment with associated subchondral sclerosis and osteophytes. Significant swelling overlying the patella and extending medially. No joint effusion is seen. Bone density and texture are normal. Atherosclerotic calcification is seen. Procedure Note Shirley Tapia MD - 11/08/2020 EXAMINATION: XR KNEE RIGHT 2VW OR LESS HISTORY: T14.90XA: Trauma COMPARISON: No prior study is available for comparison. FINDINGS: The osseous structures are intact and well aligned without acutefracture or dislocation. There is asymmetric joint space narrowing, severe in the medial compartment with associated subchondral sclerosis andosteophytes. Significant swelling overlying the patella and extending medially. No joint effusion is seen. Bone density and texture are normal. Atherosclerotic calcification is seen. IMPRESSION: Significant swelling overlying the patella. No acute fracture or dislocation identified. Osteoarthritis, severe in the medial compartment. Dictated by Rafa Ornelas MD (vice president of business development). Dr. SHIRLEY Castelan M.D. have personally reviewed and interpreted this examination/study. This report was electronically signed by SHIRLEY TAPIA M.D. on 11/08/2020 5:31 PM . Deacon Armin Bartlett MD DIAGNOSTIC IMAGING ORDERABLES * XR CHEST 1VW PORTABLE (11/07/2020 4:45 PM SUPERVISOR DUMPING) Anatomical Region Laterality Modality Chest Radiographic Gaby ging 11/07/2020 5:07 PM SUPERVISOR DUMPING Impressions 11/08/2020 5:26 PM SUPERVISOR DUMPING FINDINGS/IMPRESSION: There is bilateral perihilar congestion. There is no focal consolidation, pleural effusion, or pneumothorax. The cardiac silhouette is enlarged. The mediastinal silhouette appears mildly widened. The visible bony thorax is intact. Report dictated by Rafa Ornelas MD (vice president of business development). Dr. SHIRLEY Castelan M.D. have personally reviewed and interpreted this examination/study. This report was electronically signed by SHIRLEY TAPIA M.D. on 11/08/2020 5:26 PM . Narrative 11/08/2020 5:26 PM [employer]PERVISOR [employer]MPING EXAMINATION: XR CHEST 1VW PORTABLE, 11/07/2020 4:45 PM HISTORY: Trauma COMPARISON: No prior study is available for comparison. Procedure Note Shirley Tapia MD - 11/08/2020 EXAMINATION: XR CHEST 1VW PORTABLE, 11/07/2020 4:45 PM HISTORY: Trauma COMPARISON: No prior study is available for comparison. FINDINGS/IMPRESSION: There is bilateral perihilar congestion. There is no focalconsolidation, pleural effusion, or pneumothorax. The cardiac silhouette is enlarged.The mediastinal silhouette appears mildly widened. The visible bony thoraxis intact. Report dictated by Rafa Ornelas MD (vice president of business development). I, Dr. SHIRLEY TAPIA M.D. have personally reviewed and interpreted this examination/study. This report was electronically signed by SHIRLEY TAPIA M.D. on 11/08/2020 5:26 PM . Deacon Armin Bartlett MD DIAGNOSTIC IMAGING ORDERABLES * (ABNORMAL) PT-INR [facility] (11/07/2020 4:43 PM SUPERVISOR DUMPING) PT 15.4(H) 12.1 - 14.8 Seconds 11/07/2020 5:25 PM [facility] INR 1.3 See Comment 11/07/2020 5:25 PM [facility] Comment:The suggested therap eutic range for standard coumadin (warfarin) therapy is an INR of 2.0-3.0. For high-risk patients (Mechanical Mitral Valve Prosthesis, etc.), the suggested prophylactic therapeutic range is an INR of 2.5-3.5. Blood BLOOD SPECIMEN / Unknown Venipuncture / Unknown 11/07/2020 4:43 PM SUPERVISOR DUMPING 11/07/2020 5:15 PM SUPERVISOR DUMPING Deacon Armin Bartlett MD LAB - COAGULATION O RDERABLES [facility] [address] [place] [address], [facility] [phone] * CBC W AUTO DIFFERENTIAL (11/07/2020 4:43 PM SUPERVISOR DUMPING) Pathologist [facility] WBC 6.5 3.5 - 10.5 10 3/uL 11/07/2020 5:02 PM [facility] RBC 4.38 3.90 - 5.00 10 6/uL 11/07/2020 5:02 PM [facility] Hemoglobin 13.8 12.0 - 15.5 g/dL 11/07/2020 5:02 PM [facility] Hematocrit 41.3 35.0 - 45.0 % 11/07/2020 5:02 PM [facility] MCV 94.3 81.0 - 97.0 fL 11/07/2020 5:02 PM [facility] MCH 31.5 28.0 - 34.0 pg 11/07/2020 5:02 PM [facility] MCHC 33.4 32.0 - 36.0 g/dL 11/07/2020 5:02 PM [facility] Platelet Count 152 150 - 400 10 3/uL 11/07/2020 5:02 PM [facility] RDW-SD 45.3 36.0 - 50.0 fL 11/07/2020 5:02 PM [facility] RDW-CV 13.2 11.2 - 14.8 % 11/07/2020 5:02 PM [facility] MPV 12.1 9.3 - 12.8 fL 11/07/2020 5:02 PM [facility] nRBC Absolute 0.00 0 10 3/uL 11/07/2020 5:02 PM [facility] nRBC Auto 0.0 0 /100 WBC 11/07/2020 5:02 PM [facility] Neutrophils % 62.8 35.0 - 70.0 % 11/07/2020 5:02 PM [facility] Lymphocytes % 23.7 19.7 - 55.1 % 11/07/2020 5:02 PM [facility] Monocytes % 9.3 3.0 - 15.0 % 11/07/2020 5:02 PM [facility] Eosinophils % 3.1 0.0 - 6.0 % 11/07/2020 5:02 PM [facility] Basophil % 0.8 0.0 - 1.5 % 11/07/2020 5:02 PM [facility] Neutrophils Absolute 4.1 1.6 - 7.0 10 3/uL 11/07/2020 5:02 PM [facility] Lymphocyte Absolute 1.6 0.8 - 2.9 10 3/uL 11/07/2020 5:02 PM [facility] Monocytes Absolute 0.61 0.14 - 0.66 10 3/uL 11/07/2020 5:02 PM [facility] Eosinophils Absolute 0.20 0.00 - 0.45 10 3/uL 11/07/2020 5:02 PM [facility] Basophils Absolute 0.05 0.00 - 0.06 10 3/uL 11/07/2020 5:02 PM [facility] Immature Granulocytes % 0.3 0.0 - 1.0 % 11/07/2020 5:02 PM [facility] Blood BLOOD SPECIMEN / Unknown Venipuncture / Unknown 11/07/2020 4:43 PM SUPERVISOR DUMPING 11/07/2020 4:57 PM SUPERVISOR DUMPING Deacon Armin Bartlett MD LAB - HEMATOLOGY OR DERABLES [facility] [address] [place] [address], [facility] [phone] * (ABNORMAL) BASIC METABOLIC PANEL (CALCIUM TOTAL) (11/07/2020 4:43 PM SUPERVISOR DUMPING) BUN 18 7 - 26 mg/dL 11/07/2020 5:30 PM [facility] Creatinine 0.7 0.6 - 1.2 mg/dL 11/07/2020 5:30 PM [facility] Sodium 141 136 - 145 mmol/L 11/07/2020 5:30 PM [facility] Potassium 3.8 3.5 - 4.5 mmol/L 11/07/2020 5:30 PM [facility] Chloride 104 98 - 107 mmol/L 11/07/2020 5:30 PM [facility] CO2 26 22 - 29 mmol/L 11/07/2020 5:30 PM [facility] Glucose 127(H) 70 - 115 mg/dL 11/07/2020 5:30 PM [facility] Calcium 8.2(L) 8.4 - 10.2 mg/dL 11/07/2020 5:30 PM [facility] Anion Gap 15 8 - 18 11/07/2020 5:30 PM [facility] BUN/Creatinine Ratio 26(H) 7 - 23 11/07/2020 5:30 PM [facility] Osmolality Calculated 295 270 - 300 mOsm/kg 11/07/2020 5:30 PM [facility] eGFR >60 >60 mL/min/1.7 3 m2 11/07/2020 5:[address] [facility] Blood BLOOD SPECIMEN / Unknown Venipuncture / Unknown 11/07/2020 4:43 PM SUPERVISOR DUMPING 11/07/2020 4:57 PM SUPERVISOR DUMPING Deacon Armin Bartlett MD LAB - CHEMISTRY ORD ERABLES Performing Organization Address City/[facility]/ZIP Co de Phone Number [address] [address], [facility] [phone] * ALCOHOL ETHYL BLOOD (11/07/2020 4:43 PM SUPERVISOR DUMPING) Interpretation Ethanol None Detected None Detected mg/dL 11/07/2020 5:[address] [facility] Comment:Ethanol levels less than 10 mg/dL are resulted as None detected . Blood BLOOD SPECIMEN / Unknown Venipuncture / Unknown 11/07/2020 4:43 PM SUPERVISOR DUMPING 11/07/2020 4:57 PM SUPERVISOR DUMPING Deacon Armin Bartlett MD LAB - CHEMISTRY ORD ERABLES Performing Organization Address City/[facility]/ZIP Co de Phone Number [address] [address], [place] [phone] Care Teams Manager Financial Planning Relationship Specialty Start Date End Date Kavya De La Paz, HOSPITAL CLERK-MUCKING MACHINE OPERATOR [address] [place] [id number] PCP - General Nurse Practitioner 11/07/20
--- OUTSIDE RECORDS SUMMARY | 2024-10-24 11:06 | XMS_ITS | Clinical Summary ---
Author Organization [facility] Address [facility] [place] [address] Care Team Providers Care Train Station Agent Name Role Phone Remington White MD Unavailable [phone] Omar Bray DO Primary Care Provider [phone] Allergies No known active allergies Medications potassium chloride CR (K-TAB) 10 MEQ Tab CR tablet Take 1 tablet (10 mEq total) by mouth daily. 2 Active sacubitril-valsart an (ENTRESTO) 24-26 MG tablet Take 1 tablet by mouth every 12 (twelve) hours. 3 Active furosemide (LASIX) 20 MG tabletIndications: Cirrhosis of liver with ascites, unspecified hepatic cirrhosis type ([facility]/HCC HHS/HCC) Take 1 tablet (20 mg total) by mouth daily. 90 tablet 4 Active diclofenac sodium (VOLTAREN) 1 % gelIndications:Frank ateral chronic knee pain Apply 4 g topically 4 (four) times daily. 4 Active COMPRESSION STOCKINGSIndicatio ns:Dilated cardiomyopathy (CMS/HCC HHS/HCC) Below the knee, 20-30 mmHg, Size to Fit 2 Container 2 4 Active Active Problems Problem Noted Date Diagnosed Date Umbilical hernia without obstruction and without gangrene 06/13/2024 Chronic venous stasis dermatitis of both lower e xtremities 06/13/2024 Chronic combined systolic an d diastolic heart failure (CMS/HCC HHS/HCC) 12/27/2022 Primary osteoarthritis of both knees 12/27/2022 Bilateral chronic knee pain 12/27/2022 Sensorineural hearing loss (SNHL) of both ears 0 12/27/2022 Vaccine refused by patient 12/27/2022 SSS (sick sinus syndrome) ([facility]) 03/12 Dilated cardiomyopathy ([facility]) 022 Hypertension 07/04/2019 Systolic murmur 07/04/2019 Atrial fibrillation with slo w ventricular response ([facility]) Resolved Problems Problem Noted Date Diagnosed Date Resolved Date Irregular heartbeat 07/04/2019 06/13/20 24 Immunizations Name Administration Dates Next Due PFIZER COVID-19 ([facility]GE [facility]), MRNA, LNP-S, PF, 30 MCG/0.3 ML MICHAELLE-SUCROSE, IM 04/13/2022 Family History Medical History Relation Comments Diabetes Brother Heart Disease Mother Hypertension Son Relation Status Comments Brother Mother Son (Age 57) Social History Tobacco Use Types Packs/Day Years Used Date Smoking Tobacco: Never Passive Smoke Exposure: Never Smokeless Tobacco: Never Tobacco Cessation:Counseling Given: Not Answered Alcohol Use Standard Drinks/Week Comments Yes 1.7 (1 standard drink = 0.6 oz p ure alcohol) AUDIT-C Answer Date Recorded Frequency of Alcohol Consumption 4 or more times a week 07/04/2019 Average Number of Drinks 1 or 2 019 Frequency of Binge Drinking Daily or almost zenaida y 07/04/2019 PHQ-2 Answer Date Recorded Patient Health Questionnaire-2 Score 0 06/13/2024 Comments No Sex and Gender Information Value Date Recorded Sex Assigned at Not on file Legal Sex Female 1:57 PM CDT Gender Identity Not on file Sexual Orientation Not on file Occupation Industry Job Start Date Job End Date Not on file Not on file Not on file Not on file Last Filed Vital Signs Vital Sign Reading Time Taken Comments Blood Pressure 101/51 06/13/2024 9:47 AM CDT Pulse 42 06/13/2024 9:47 AM CDT Temperature 36.6 C (97.9 F) 06/13/2024 9:47 AM CDT Respiratory Rate 16 03/13/2024 7:05 AM CDT Oxygen Saturation 99% 06/13/2024 9:47 AM CDT Inhaled Oxygen Concentration - - Weight 61.6 kg (135 lb 12.8 oz) 06/13/2024 9:47 AM CDT Height 162.6 cm (5' 4 ) 06/04/2024 8:59 AM CDT Body Mass Index 23.31 06/04/2024 8:59 AM CDT Plan of Treatment Upcoming Encounters Date Type Department Care Team (Late st Contact Info) Description 06/17/2025 1:40 PM CDT Office Visit [facility] - [place] [address] [place] [id number] Omar Bray DO [address] [place] [address] Health Maintenance Due Date Last Done Comments Pneumococcal Vaccine: 65+ Years (1 of 2 - PCV) 1940 DTaP, Tdap and Td Vaccines (1 - Tdap) 1953 Zoster Vaccines (1 of 2) 1984 RSV Immunization or 60+ Years (1 - 1-dose 75+ series) 2009 Annual Medicare Wellness Visit 01/20/2022 01/19/2021 COVID-19 Vaccine ( season) 2024 04/13/2022, 01/15/2021, 01/15/2021, Additional history exists Influenza Adult (#1) 2024 PHQ-2 (Physician [place]) 09/12/2024 06/13/2024 PHQ-2 (Physician [place]) 06/13/2025 06/13/2024 Meningococcal B Vaccine Aged Out No l onger eligible based on patient's age to complete this topic Meningococcal Vaccine Aged Out No tank di eligible based on patient's age to complete this topic RSV Immunizations Under 20 Months Aged Out No longer eligible based on patient's age to complete this topic Insurance [employer] Care Teams Train Station Agent Relationship Specialty Start Date End Date [place] [address] PCP - General FAMILY PRACTICE 12/06/22 Remington White MD [address] [id number] EP Assistant Kitchen Manager CARDIOVASCULAR DISEASE 07/04/19
--- OUTSIDE RECORDS SUMMARY | 2024-10-24 11:06 | XMS_ITS | Clinical Summary ---
Author Organization [facility] [place] [address] Address [address] [place] [address] Care Team Providers Care Architectural Draftsperson Name Role Phone Katelynn Moore MD Primary Care Provider Allergies No known active allergies Medications MAGNESIUM [...] (CMS/HCC) 03/22/2022 Hypertension 07/04/2019 Systolic murmur 07/04/2019 Encounters Date Type Department Care Team Description 10/18/2024 3:30 PM SHOE ASSOCIATE Office Visit [facility] Cardiology [address] [place] [address] Radha Acosta NP Dilated cardiomyopathy (CMS/HCC) (HCC) (Primary Dx); Cirrhosis of liver with ascites, unspecified hepatic cirrhosis type (HCC); Edema, lower extremity; Umbilical hernia without obstruction and without gangrene; SSS (sick sinus syndrome) (CMS/HCC) (HCC); Atrial fibrillation, unspecified type (HCC) 10/03/2024 5:44 PM SHOE ASSOCIATE - 10/03/2024 11:59 PM SHOE ASSOCIATE Hospital Encounter [facility] [address] [place] [id number] Discharge Disposition: Discharge to home or self care 10/03/2024 1:30 PM SHOE ASSOCIATE Office Visit [facility] Minimally Invasive [facility] [address] [place] [address] Omar Schmidt MD Cirrhosis of liver with ascites, unspecified hepatic cirrhosis type (HCC) (Primary Dx); Umbilical hernia without obstruction and without gangrene; Chronic combined systolic and diastolic heart failure (CMS/HCC) (HCC); SSS (sick sinus syndrome) (CMS/HCC) (HCC) from Last 3 Months Immunizations Name Administration Dates Next Due Pfizer SARS-CoV-2 Monovalent Vaccination (12+ Yrs) PURPLE 01/15/2021,12/25/2020 Surgical History Surgery Date Site/Laterality Comments VEIN SURGERY Left vein removal left leg Medical History Medical History Date Comments Hyperlipidemia Hyperlipidemia; Comments: [facility] 08/22/2014 - Hypertension Hypertension Hx Other Medical osteoarthritis; Comments: [facility] 08/22/2014 - Atrial fibrillation (CMS/HCC) (HCC) CHF (congestive heart failur e) (CMS/HCC) (HCC) Family History Medical History Relation Name Comments Diabetes Brother Heart disease Mother Breast cancer Sister Cancer Sister remports starte d in her intestines Relation Name Status Comments Brother Mother Sister Social History Tobacco Use Types Packs/Day Years [...] on file Legal Sex Female 7:19 AM SHOE ASSOCIATE Gender Identity Not on file Sexual Orientation Not on file Obstetrics History Last Filed Vital Signs Vital Sign Reading Time Taken Comments Blood Pressure 156/78 10/18/2024 3:36 PM SHOE ASSOCIATE Pulse 44 10/18/2024 3:36 PM SHOE ASSOCIATE Temperature 36.7 C (98 F) 10/03/2024 1:20 PM SHOE ASSOCIATE Respiratory Rate - - Oxygen Saturation 96% 10/18/2024 3:36 PM SHOE ASSOCIATE Inhaled Oxygen Concentration - - Weight 71.7 kg (158 lb) 10/18/2024 3:36 PM SHOE ASSOCIATE Height 162.6 cm (5' 4 ) 10/18/2024 3:36 PM SHOE ASSOCIATE Body Mass Index 27.12 10/18/2024 3:36 PM SHOE ASSOCIATE Plan of Treatment Health Maintenance Due Date Last Done Comments Fall Risk Assessment 1934 Pneumococcal vaccine 65+ (1 of 2 - PCV) 1940 DTaP/Tdap/Td Vaccine (1 - Tdap) 1945 Hepatitis B Screening 1952 Zoster Vaccine (1 of 2) 1984 Well Visit 65+ 11/25/1999 Depression Screening 03/22/2023 03/22/2022 Covid-19 Vaccine ( - season) 05/13/202402/2021, 12/25/2020 Influenza Vaccine (#1) 2024 Procedures Procedure Name Priority Date/Time Associated Diagnosis Comments CT BODY OUTSIDE REFERENCE Routine 10/03/2024 5:44 PM SHOE ASSOCIATE from Last 3 Months Results * CT Body Outside Reference (10/03/2024 5:44 PM SHOE ASSOCIATE) Impressions JOHNATHAN - 10/03/2024 5:44 PM SHOE ASSOCIATE These images are for Reference purposes only and have not been reviewed by [facility]. There will be no report generated by a [facility] Radiologist. Narrative [facility] - 10/03/2024 5:44 PM SHOE ASSOCIATE EXAMINATION: Images For Reference Purposes Only us Omar Schmidt MD IMG CT PROCEDURES Final Result [id number] from Last 3 Months Insurance [employer] MEDICARE [employer] MEDICARE [employer] MEDICARE Care Teams Architectural Draftsperson Relationship Specialty Start Date End Date Katelynn Moore MD PCP - General Family Practice 03/22/22
--- OUTSIDE RECORDS SUMMARY | 2024-10-24 11:06 | XMS_ITS | Referral Summary ---
Author Organization [facility] [employer] Address [address] [place] [address] Care Team Providers Care Pants Busheler Name Role Phone Kavya De La Paz APRN-FORENSIC EXAMINER Primary Care Provider Source Comments [facility] [employer],non-owned Affiliates and Associated Physician Practices is amultiple site organization consisting of ambulatory clinics and hospital sitesin [place], [place], [place] and [place]. This disclosure is being madepursuant to the Care Everywhere program and may not contain all information available regarding this patient. Last updated 18.[facility] [employer] Allergies No known active allergies Medications Be [...] Comments Blood Pressure 155/89 11/08/2020 1:07 AM PASSENGER RATE CLERK Pulse 65 11/08/2020 1:07 AM PASSENGER RATE CLERK Temperature 36.9 C (98.5 F) 11/08/2020 1:07 AM PASSENGER RATE CLERK Respiratory Rate 16 11/08/2020 1:07 AM PASSENGER RATE CLERK Oxygen Saturation 100% 11/08/2020 1:07 AM PASSENGER RATE CLERK Inhaled Oxygen Concentration - - Weight 68 kg (150 lb) 11/07/2020 9:48 PM PASSENGER RATE CLERK Height 162.6 cm (5' 4 ) 11/07/2020 9:48 PM PASSENGER RATE CLERK Body Mass Index 25.75 11/07/2020 9:48 PM PASSENGER RATE CLERK Plan of Treatment Upcoming Encounters Date Type Department Care Team (Late st Contact Info) Description 12/03/2024 1:00 PM CDT Office Visit [facility] [address] [facility] [place] [address] Dalia Neely APRN-FORENSIC EXAMINER [address] [facility] [address] [place] [address] Care Teams Pants Busheler Relationship Specialty Start Date End Date Kavya De La Paz, MECHANICAL COMMISSIONING ENGINEER-FORENSIC EXAMINER [address] [place] [address] PCP - General Nurse Practitioner 11/07/20
== END 2024-10-24 10:07 | disposition home or self-care (01) ==
LOC: ANHLAB 10:07
PROVIDERS: Visit Provider Nurse Practitioner Adult Health
DX: I42.0 Dilated cardiomyopathy (principal)
CPT/HCPCS: 36415; 80048